=== PATIENT | female | born 1950 | race Caucasian/White ===

== ENCOUNTER 2019-07-16 13:57 | Outpatient (CLI) | payer OTHER, SELFPAY ==
--- NOTE | ~2019-07-16 | CT_ITS ---
EXAMINATION: CT chest abdomen pelvis w con EXAM DATE: 07/16/2019 14:59 INDICATION: Right-sided ovarian cancer. Peritoneal carcinomatosis. TECHNIQUE: Spiral CT of the chest, abdomen and pelvis was performed following intravenous injection o f 100 mL Omnipaque 350. Axial, coronal and sagittal images were reviewed. Coronal maximum intensity pixel images of chest reviewed. The dose-length product (DLP) for this examination was 873.93 mGy-c m. The exposure was tailored according to patient size (auto mA exposure control), and iterative rec onstruction (ASIR) was used as additional dose reduction technique. Comparison is made to prior exami nation from 03/15/2019. FINDINGS: CHEST: There are moderate-sized bilateral pleural effusions with multi segmental bilateral lower lob e compressive atelectasis, have developed compared to prior CT. Tracheobronchial tree is patent. Th ere is no mediastinal, hilar or axillary lymphadenopathy. There is no pneumothorax. There is mild cardiomegaly and a small pericardial effusion. There is mild coronary arterial calcification, arter ial sclerosis. No central pulmonary emboli. ABDOMEN PELVIS: Compared to previous examination, only small amount of ascites is present. There is e xtensive peritoneal carcinomatosis again seen. The liver, spleen, adrenal glands and pancreas are un remarkable. Gallbladder is unremarkable. No biliary obstruction. Portal and splenic veins are cai nt. Kidneys enhance symmetrically. There is no hydronephrosis. Previously seen pelvic cystic mass , uterus have been resected. There is pelvic multicystic region within the hysterectomy bed measuring 3 x 5 cm, likely carcinomatosis. The bladder is unremarkable. There is no retroperitoneal or pelvi c lymphadenopathy. There is moderate scattered arteriosclerotic disease. The appendix is not positively visualized. There is no pericecal inflammatory change to suggest appe ndicitis. The stomach and small bowel are unremarkable. There is expected amount of colonic stool. No free intraperitoneal gas. There are no osteoblastic or osteolytic lesions identified. IMPRESSION: 1. Interval hysterectomy. Extensive peritoneal carcinomatosis. 2. Interval development of moderate bilateral pleural effusions with multisegmental lower lobe atele ctasis. 3. Mild cardiomegaly, small pericardial effusion. Reviewed, dictated and finalized at location A. IMPRESSION: 1. Interval hysterectomy. Extensive peritoneal carcinomatosis. 2. Interval development of moderate bilateral pleural effusions with multisegm ental lower lobe atelectasis. 3. Mild cardiomegaly, small pericardial effusion.
[2019-07-16 14:44] LABS: Estimated Glomerular Filt Rate > 60
== END 2019-07-16 13:58 | disposition home or self-care (01) ==
PROVIDERS: PCP Family Medicine; Referring Provider Obstetrics & Gynecology Gynecologic Oncology
DX: C56.9 Malignant neoplasm of unspecified ovary (principal); Z51.81 Encounter for therapeutic drug level monitoring; Z79.899 Other long term (current) drug therapy; H91.3 Deaf nonspeaking, not elsewhere classified; I69.359 Hemiplegia and hemiparesis following cerebral infarction affecting unspecified side; I69.328 Other speech and language deficits following cerebral infarction; Z90.710 Acquired absence of both cervix and uterus; J90 Pleural effusion, not elsewhere classified; J98.11 Atelectasis; I51.7 Cardiomegaly; I31.3 Pericardial effusion (noninflammatory)
CPT/HCPCS: 36415; 71260; 74177; Q9967

== ENCOUNTER 2019-08-01 14:26 | Inpatient (IN) | payer OTHER, SELFPAY ==
[2019-08-01] VITALS (11 sets, daily range): BP systolic 152–197; BP diastolic 87–122; PULSE 92–125; RESP 18–24; TEMP 36.2–36.6; O2SAT 93–99; BMI 28.2
--- NOTE | ~2019-08-01 | US_ITS ---
EXAMINATION: US thoracentesis DATE: 08/03/2019 14:38 INDICATION: Right pleural effusion TECHNIQUE: The procedure and its risks and benefits were discussed with the patient. Potential risks discussed included bleeding, infection, and pneumothorax. The patient understood the risks and agreed to proceed. The skin was prepped and draped in sterile fashion. 1% lidocaine was used for local anes thesia. Under ultrasound guidance, a 5 Fr catheter with trochar was advanced into the right pleural e ffusion. Fluid was aspirated. The catheter was removed, and a dressing was applied. There were no imm ediate complications. FINDINGS: Ultrasound images demonstrate a moderate-sized right pleural effusion and the catheter within the flu id. IMPRESSION: 1. Successful ultrasound-guided thoracentesis yielding 850 mL of clear yellow fluid. Reviewed, dictated and finalized at location A.
--- NOTE | ~2019-08-01 | CT_ITS ---
EXAMINATION: CT abdomen pelvis wo con DATE: 08/02/2019 19:05 INDICATION: Abdominal pain, nausea and increasing distention TECHNIQUE: Computed tomography (CT) of the abdomen and pelvis was performed without intravenous contr ast. The dose-length product was 1044.06 mGy-cm. Automated exposure control and iterative reconstruct ion technique were employed. COMPARISON: CT dated 07/16/2019 FINDINGS: Unchanged moderate-large bilateral pleural effusions with underlying compressive atelectasi s. Heart size normal. Evaluation of the lung parenchyma limited by motion. Calcified granuloma right lower lobe. Calcified granulomas are present in the liver and spleen. Redemonstrated is peritoneal nodularity ant eriorly with small amount of ascites, consistent with peritoneal carcinomatosis. No evidence for kareem l obstruction. There is bladder wall thickening, although not well distended. There is a persistent s oft tissue mass in the pelvis measuring 5 x 3.4 cm, most likely carcinomatosis. No osteolytic or oste oblastic lesions. Mild-moderate lumbar spondylosis. IMPRESSION: 1. Unchanged moderate-large bilateral pleural effusions with underlying compressive atelectasis. 2: No significant change to extensive peritoneal carcinomatosis. Small amount of ascites. Reviewed, dictated and finalized at location A. IMPRESSION: 1. Unchanged moderate-large bilateral pleural effusions with underlying gavin sive atelectasis. 2: No significant change to extensive peritoneal carcinomatosis. Small amount o f ascites.
--- NOTE | ~2019-08-01 | CT_ITS ---
EXAMINATION: CT brain wo con DATE: 08/04/2019 12:58 INDICATION: Right-sided weakness TECHNIQUE: Computed tomography (CT) of the head was performed without intravenous contrast. The dose- length product was 605.33 mGy-cm. The mA was adjusted according to patient size. Iterative reconstruc tion technique was employed. COMPARISON: None FINDINGS: Generalized atrophy. There are scattered severe periventricular and subcortical white matte r changes, most likely related to small vessel ischemic disease (microangiopathy). No ventriculomegal y or midline shift. Basilar cisterns are patent. There is intracranial atherosclerosis. Paranasal sin uses and mastoids are pneumatized. No depressed skull fractures. IMPRESSION: 1. No acute intracranial abnormality. 2: Chronic age-related findings. Reviewed, dictated and finalized at location A.
--- NOTE | ~2019-08-01 | XR_ITS ---
EXAMINATION: XR chest 1V DATE: 08/03/2019 14:31 INDICATION: Pleural effusions post right thoracentesis. TECHNIQUE: frontal view of the chest was obtained. COMPARISON: Chest CT dated 08/01/2019 FINDINGS: Significant decrease in a now very small right pleural effusion. Moderate-sized left pleural effusion with associated atelectasis in the left lower lung zone. No pulmonary edema or pneumothorax. Calcifi ed nodules in the right lower lung zone and calcified right hilar lymph nodes consistent with old gra nulomatous disease. Heart size is normal. Atherosclerotic aorta. IMPRESSION: 1. Bilateral pleural effusions, moderate on the left and significantly decreased now very small in th e right post right thoracentesis. Reviewed, dictated and finalized at location A. IMPRESSION: 1. Bilateral pleural effusions, moderate on the left and significantly decrease d now very small in the right post right thoracentesis.
--- NOTE | ~2019-08-01 | XR_ITS ---
XR chest 1V portable 08/04/2019 13:01 Indication: Follow-up on right thoracentesis. Dyspnea. Procedure: AP portable chest Comparison: 03/15/2019 Findings: Cardiomegaly. Bilateral pleural effusions, left greater than right. Extensive bilateral air space disease, left greater than right. No pneumothorax identified. No acute osseous abnormality. Impression: 1: Progression of bilateral airspace disease may represent edema or pneumonia. 2: Bilateral pleural effusions, left greater than right. Reviewed, dictated and finalized at location A. Impression: 1: Progression of bilateral airspace disease may represent edema or pneumonia. 2: Bilateral pleural effusions, left greater than right.
--- NOTE | ~2019-08-01 | CT_ITS ---
EXAMINATION: CTA chest PE protocol DATE: 08/01/2019 16:29 CDT INDICATION: Ovarian cancer. Tachycardia. Hypoxia. TECHNIQUE: Computed tomographic angiography (CTA) of the chest was performed with 100 mL Omnipaque-35 0 intravenous contrast. The dose-length product was 453.92 mGy-cm. Maximum intensity projection 3D-re constructions of the aorta and other arteries were constructed by the technologist on a separate work station. Automated exposure control and iterative reconstruction technique were employed. COMPARISON: CT dated 07/16/2019 FINDINGS: Persistent moderate-large bilateral pleural effusions with underlying compressive atelectas is. Heart size normal. Study is technically limited by motion artifact for evaluation of peripheral pulmonary arteries in th e lower lobes. No large central pulmonary embolism. There are calcified mediastinal lymph nodes consi stent with chronic granulomatous disease. No pulmonary nodules or masses. There is nodular thickening of the peritoneum in the upper abdomen partially visualized, consistent w ith peritoneal carcinomatosis. IMPRESSION: 1. No large central pulmonary embolism. Evaluation of the lower lobe peripheral pulmonary arteries li mited by motion artifact. 2: Persistent moderate-large bilateral pleural effusions with underlying compressive atelectasis. 3: Peritoneal carcinomatosis. Reviewed, dictated and finalized at location A. IMPRESSION: 1. No large central pulmonary embolism. Evaluation of the lower lobe peripheral pulmonary arteries limited by motion artifact. 2: Persistent moderate-large bilateral pleural effusions with underlying compre ssive atelectasis. 3: Peritoneal carcinomatosis.
--- NOTE | 2019-08-01 14:37 | ED.SOB ---
HPI - SOB/Dyspnea General Chief Complaint: Shortness of Breath/Dyspnea Stated Complaint: SOB Time Seen by Provider: 08/01/19 14:27 Source: patient and EMS Mode of arrival: EMS Limitations: language barrier History of Present Illness HPI Narrative: Patient is a 69-year-old female with a history of ovarian cancer, peritoneal carcinomatosis diagnosed in March 2019, deafness, who presents for evaluation of shortness of breath. Patient with shortness of breath started yesterday, also reporting central chest pain. She is having some palpitations. Dry cough, no phlegm production or hemoptysis. Patient has not had a fever. Patient is deaf, no ophthalmic pathologist present, difficult to obtain history. Related Data Home Medications Medication Instructions Recorded Confirmed fesoterodine [Toviaz] 8 mg PO DAILY 03/15/19 furosemide 20 mg PO DAILY 03/15/19 levothyroxine 50 mcg PO DAILY 03/15/19 lisinopril 40 mg PO DAILY 03/15/19 metformin 1,000 mg PO BID 03/15/19 metoprolol succinate 25 mg PO DAILY 03/15/19 pioglitazone 45 mg PO DAILY 03/15/19 rosuvastatin 5 mg PO DAILY 03/15/19 aspirin 81 mg PO BID 08/01/19 docusate sodium [DOK] 100 mg PO BID 08/01/19 08/01/19 Allergies Allergy/AdvReac Type Severity Reaction Status Date / Time No Known Allergies Allergy Verified 03/15/19 16:06 Review of Systems Review of Systems: Narrative: CONSTITUTIONAL: Denies fever CARDIOVASCULAR: Reports chest pain RESPIRATORY: Reports dry cough and shortness of breath GASTROINTESTINAL: Denies abdominal pain SKIN: Denies rash MUSCULOSKELETAL: Denies back pain NEUROLOGIC: Denies headache [facility] Past Medical History Medical History (Updated 08/01/19 @ 19:28 by Radhika Garland MD) Deaf No active medical problems Ovarian cancer Surgical History Surgical History (Updated 03/15/19 @ 16:05 by Kim Blake) No pertinent past surgical history Social History Social History Smoking status: Never smoker Gender identity (if verbalized by the patient): Female Exam Narrative: Exam Narrative: GENERAL: Awake, alert, conversant HEAD: Normocephalic, atraumatic. EYES: PERRLA and EOMI. ENT: Nares clear, no rhinorrhea or epistaxis. Mucous membranes moist. NECK: Supple. CHEST: Tachypnea, mild hypoxemia, mild use of accessory muscles, crackles bilaterally HEART: Tachycardic rate, sinus rhythm ABDOMEN:Non distended, non tender EXTREMITIES: Normal range of motion. No edema. SKIN: Warm, dry, no rash. NEURO:No focal deficits. Alert and oriented x3 Course Course Emergency Course: Patient presented to the emergency department for evaluation of shortness of breath. At the time of initial assessment, ABCs are intact and vital signs are stable. Physical exam is notable for a tachycardic, hypertensive, tachypneic patient with borderline hypoxemia on room air. Patient was placed on oxygen via nasal cannula for comfort, chest exam notable for crackles bilaterally. After chart review, it is known to me that I saw this patient for new diagnosis of ovarian tumor, peritoneal carcinomatosis, and patient was transferred in March to [facility] where she underwent debulking surgery. After I requested records from [facility] and spoke with the fine on team at that facility, patient has had some difficulty with follow-up, but finally they had coordinated for her oncology care to be with Dr. Charles with our facility. Today, patient's laboratory results are concerning for acute heart failure with fluid overloaded state causing her tachypnea, tachycardia and hypoxemia. She has a mild leukocytosis, pleural effusions on imaging without evidence of PE. These could be malignant effusions, but there is no mass on imaging. I spoke with Dr. Charles who is going to see the patient in the hospital. Patient was given nitroglycerin as well as Lasix for blood pressure control and fluid overload. She remaine
[2019-08-01] MEDS: SODIUM CHLORIDE 0.9% IV 500 ML 999 ML IV CONT (14:45)
--- NOTE | 2019-08-01 14:49 | ECG_ITS ---
Measurements Intervals [place] Rate: 116 P: 46 CT: 135 QRS: -11 QRSD: 92 T: 32 QT: 319 QTc: 444 Interpretive Statements SINUS TACHYCARDIA CANNOT RULE OUT SEPTAL INFARCT, AGE INDETERMINATE BORDERLINE ST-T WAVE ABNORMALITY- DIFFUSE LEADS BASELINE WANDER- I, II, III, AVR, AVL, AVF, V1, V3 ABNORMAL ECG Electronically Signed On 08-01-2019 16:43:56 CDT by Louis Chirinos D.O.
[2019-08-01 15:39] LABS: Basophils Absolute Auto 0.1 K/mm3 (0.0-0.1); Basophils Percent Auto 0.5 % (0.2-1.2); Eosinophils Absolute Auto 0.1 K/mm3 (0-0.3); Eosinophils Percent Auto 0.5 % (0-4.4); Hematocrit 46.8 % (37.0-47.0); Hemoglobin 14.5 g/dL (12.0-15.0); Immature Granulocyte Absolute 0.25 K/mm3 (0.00-0.031); Immature Granulocyte Percent A 1.9 % (0-0.5); Lymphocytes Absolute Auto 0.49 K/mm3 (0.9-3.2); Lymphocytes Percent Auto 3.7 % (18.3-44.2); Mean Corpuscular Hemoglobin 27.4 pg (26-34); Mean Corpuscular Volume 88.5 fl (80-100); Mean Platelet Volume 9.3 fl (7.4-10.4); Monocytes Absolute Auto 1.1 K/mm3 (0.1-0.6); Monocytes Percent Auto 8.5 % (2.6-8.5); Neutrophils Absolute Auto 11.2 K/mm3 (1.3-6.7); Neutrophils Percent Auto 84.9 % (45.5-73.1); Platelet Count Result 326 k/mm3 (150-375); Red Blood Count 5.29 M/mm3 (4.2-5.4); Red Cell Distribution Width 14.3 % (11.5-14.5); White Blood Count 13.2 K/mm3 (4.5-10.0)
[2019-08-01 15:50] LABS: Lactic Acid Reflex 1.2 mmol/L (0.7-2.1)
[2019-08-01 15:52] LABS: Partial Thromboplastin Time 29.2 SECONDS (22.3-36.8); Prothrombin Time 13.2 Seconds (11.1-14.7)
[2019-08-01 15:53] LABS: Alanine Aminotransferase 13 U/L (4-35); Albumin Level 3.7 g/dL (3.5-5.1); Alkaline Phosphatase 153 U/L (38-126); Aspartate Amino Transferase 26 U/L (14-36); Bilirubin,Total 0.6 mg/dL (0.2-1.3); Blood Urea Nitrogen 20 mg/dL (7-17); Calcium 9.5 mg/dL (8.4-10.2); Carbon Dioxide 30 mmol/L (22-30); Chloride 100 mmol/L (98-107); Estimated CRCL calculation 66 ml/min; Estimated Glomerular Filt Rate > 60; Glucose 155 mg/dL (65-105); Potassium 3.7 mmol/L (3.4-5.0); Sodium 138 mmol/L (137-145)
[2019-08-01 15:55] LABS: D Dimer 3.94 ug/mL (<0.48)
[2019-08-01 16:03] LABS: NT Pro B Type Natriuretic Pept 1820 PG/ML (5-100)
[2019-08-01 16:51] LABS: Alveolar/Arterial O2 Gradient 13.1 mmHg; Base Excess ABG 1.3 mEq/l (+/-2.0); Fractional Inspired Oxygen 21 %; HCO3 ABG 26.7 mEq/l (22.0-26.0); Oxygen Content ABG 17.7 %vol (16.0-22.0); Oxyhemoglobin 94.2 % THb (90.0-100.0); PCO2 ABG 45.3 mmHg (35.0-45.0); PO2 ABG 82.4 mmHg (80.0-100.0); PO2 FiO2 Ratio Arterial Blood 3.92 %; Total Hemoglobin 13.3 g/dL (12.0-18.0); pH ABG 7.389 (7.350-7.450)
[2019-08-01 16:52] LABS: Device NASAL CANNULA; Site Drawn LEFT BRACHIAL
[2019-08-01] MEDS: FUROSEMIDE INJ 40 MG/4 ML VIAL 20 MG IV PUSH (18:00)
[2019-08-01] MEDS: NITROGLYCERIN OINTMENT 1 INCH DOSE TRANSDERM (18:49)
[2019-08-01 20:13] LABS: Glucose Point of Care 166 (65-105)
--- NOTE | 2019-08-01 20:22 | ADMGEN ---
This patient, Pinky Villafana, was admitted to IMU Room 205-01. Patient/family oriented to hospital policies and general routines including ID bracelet, bed and alarms, visiting hours, pain management, procedures, bathroom and other care routines, personal items, smoking policy, room service/diet, and visiting hours. Valuables list has been completed. Information on how to activate the Rapid Response Team has been discussed. Patient/Family are encouraged to report perceived risks to care and to ask questions if they do not understand what they are told or what they should do.
--- NOTE | 2019-08-01 21:32 | PC.NURSE ---
Medications were clarified with nurse from [facility], where patient currently resides.
[2019-08-02] VITALS (19 sets, daily range): BP systolic 153–184; BP diastolic 77–106; PULSE 68–117; RESP 12–24; TEMP 35.6–36.6; O2SAT 92–98
[2019-08-02 01:05] LABS: Troponin I 0.049 ng/mL (0.000-0.034)
[2019-08-02] MEDS: ACETAMINOPHEN 325 MG TABLET 650 MG PO ×2 (01:50→09:21)
[2019-08-02] MEDS: METOPROLOL TARTRATE 25 MG TABLET PO ×3 (01:50→20:48)
[2019-08-02 04:14] LABS: Troponin I 0.049 ng/mL (0.000-0.034)
--- NOTE | 2019-08-02 06:00 | ECHO_ITS ---
Patient Info Name: Pinky Villafana Age: 69 years : 1950 Gender: Female Ht: 63 in Wt: 159 lbs BSA: 1.81 m2 HR: 88 bpm BP: 153 / 77 mmHg Heart Rhythm: Sinus Rhythm Technical Quality: Fair Exam Date: 08/02/2019 9:36 AM Exam Location: [facility] Pulmonary Patient Status: Inpatient Admit Date: 08/01/2019 Staff Ordering Physician: Radhika Garland MD Cafeteria Assistant: David Murcia RDCS Attending Provider: Lito Brandon MD Referring Physician: Dada DAUGHERTY; Exam Type: CA echo doppler color flow Study Info Indications I50.9 - Heart failure, unspecified Complete two-dimensional, color flow and Doppler transthoracic echocardiogram is performed. History/Risk Factors Acute CHF w/ BNP 1820, SOB, chest pain, palpitations, HTN. Summary 1. Left ventricular chamber dimension is normal. 2. Left ventricular systolic function is normal, estimated at 60-65%. 3. There is moderately increased left ventricular wall thickness. 4. The left ventricular diastolic function is grade I diastolic dysfunction. 5. E/e' 14 is mildly elevated. 6. The aortic valve is not well visualized. 7. There is moderate aortic valve sclerosis. 8. There is moderate aortic valve stenosis based on a peak velocity of 313 cm/s, mean gradient of 23 mmHg, and aortic valve area of 1.0 cm2. 9. The mitral valve has mildly thickened leaflets. 10. There is mild mitral valve regurgitation. 11. There is trace tricuspid valve regurgitation. Left Ventricle E/e' 14 is mildly elevated. Left ventricular chamber dimension is normal. Left ventricular systolic function is normal, estimated at 60-65%. There is moderately increased left ventricular wall thickness. The left ventricular diastolic function is grade I diastolic dysfunction. Right Ventricle Right ventricular chamber dimension is normal. Right ventricular systolic function is normal. Left Atria Left atrial chamber dimension is normal. Right Atria Right atrial chamber dimension is normal. Aortic Valve Probably trileaflet aortic valve. There is moderate aortic valve stenosis based on a peak velocity of 313 cm/s, mean gradient of 23 mmHg, and aortic valve area of 1.0 cm2. The aortic valve is not well visualized. There is moderate aortic valve sclerosis. There is no aortic valve regurgitation. Pulmonic Valve There is no pulmonic regurgitation. Mitral Valve The mitral valve has mildly thickened leaflets. There is no mitral valve stenosis. There is mild mitral valve regurgitation. Tricuspid Valve There is trace tricuspid valve regurgitation. RVSP is not calculated due to an inadequate TR jet. Pericardium/Pleural There is no pericardial effusion. Inferior Vena Cava Normal inferior vena cava with >50% collapse upon inspiration consistent with normal right atrial pressure, 5 mmHg. Aorta The aortic root size at the sinus of Valsalva is normal. Left Ventricular Outflow Tract Name Value Normal LVOT 2D LVOT Diameter 1.7 cm LVOT Doppler LVOT Peak Gradient 8 mmHg LVOT Mean Gradient 4 mmHg LVOT VTI
[2019-08-02] MEDS: ACETAMINOPHEN/ASPIRIN/CAFFEINE 250-250-65 MG TABLET 1 TABLET PO ×2 (06:19→13:54)
[2019-08-02] MEDS: ONDANSETRON INJ 4 MG/2 ML VIAL IV PUSH ×4 (06:20→23:55)
[2019-08-02] MEDS: LEVOTHYROXINE SODIUM 50 MCG TABLET PO (06:20)
[2019-08-02 07:21] LABS: Glucose Point of Care 110 (65-105)
--- NOTE | 2019-08-02 08:31 | PM.IMHP ---
H&P: HPI History of Present Illness Chief complaint: Shortness of breath Narrative: Date and time of patient contact: 08/02/2019 at 5:50 a.m. Pinky Villafana is a 69 year old female with a past medical history of profound congenital hearing loss, ovarian cancer with carcinomatosis status post hysterectomy with bilateral oophorectomy and tumor debulking in March who presented to the ER with increasing shortness of breath. The patient reported that she is short of breath at rest but is been much worse when she is up and walking or performing any exertion. Her shortness of breath has increased significantly over the last 24 hours prior to presentation. She has slept in a recliner for many years so she cannot report whether she is having orthopnea. She did have some central chest pressure that was worse when her heart was racing when she would get up in exert herself. She reported that the chest pressure went away when she would rest. While she was at [facility] in [place] she had an echocardiogram and an ejection fraction of 60%. She did have sinus tachycardia at that time and had been started on metoprolol. There was a miscommunication when the patient was discharged to the assisted living facility and she was not continued on metoprolol. She has had a dry cough and denies any fevers or chills. In fact while I was in the patient's room she mention that she was extremely hot no less than 10 times despite her room being cold. Patient reported that she had a headache that was in the right frontal and was a 5/10 in intensity. She had already received Tylenol for her headache without relief. She reports that Excedrin usually works better for her. She did have some nausea while I was at bedside but had not had any vomiting since admission. She denies any confusion but during our discussion patient was adamant that her cancer had been diagnosed in January but the patient had actually been evaluated here with a CT scan March 15 demonstrating the patient's right ovarian mass and peritoneal carcinomatosis with ascites. She had a trace right pleural effusion and small pericardial effusion at that time. Scan of the chest abdomen pelvis 07/16/2019 demonstrated interval hysterectomy with extensive peritoneal carcinomatosis and interval development of moderate bilateral pleural effusions with multiple segmental lower lobe atelectasis, mild cardiomegaly and a small pericardial effusion. The patient has not started chemotherapy as she did not want to travel all the way to [facility] in [place]. Source of information: Information obtained from review of past medical records and report from the patient through an command post superintendent. Review of Systems Review of Systems: Narrative: 12 systems were reviewed with pertinent positives and negatives per HPI. Except as documented in the HPI, all other systems were reviewed and are negative. FOR[facility]LY [facility] Past Medical History Medical History (Updated 08/04/19 @ 13:39 by Kevin Kaur MD) Aortic stenosis Echocardiogram from outside facility March 2019 demonstrated mild aortic stenosis with ejection fraction is 60% Congenital deafness Hyperlipidemia Hypothyroidism Migraine headache Ovarian cancer Overactive bladder Peritoneal carcinomatosis Therapeutic opioid induced constipation Surgical History Surgical History (Updated 08/02/19 @ 08:51 by Hannah Mcleod DO) History of hysterectomy with bilateral oophorectomy March 2019 with tumor debulking, omentectomy, adhesion lysis performed at [facility] in [place] Family History Family History (Updated 08/02/19 @ 08:55 by Hannah Mcleod DO) Mother Cerebrovascular accident Hypertension Son Congenital deafness Oldest son Social History Social History (Updated 08/02/19 @ 08:57 by Hannah Mcleod DO) Social History: Primary care physician: Dr. Diogo Scott Code status: Full code per EMR
[2019-08-02] MEDS: lisinopriL 10 MG TABLET PO (09:19)
[2019-08-02] MEDS: LETROZOLE (*CHEMO) 2.5 MG TABLET PO (09:19)
[2019-08-02] MEDS: ROSUVASTATIN 5 MG TABLET PO (09:19)
[2019-08-02 09:47] LABS: Hematocrit 42.1 % (37.0-47.0); Hemoglobin 13.3 g/dL (12.0-15.0); Mean Corpuscular HGB Conc 31.6 g/dl (32-36); Mean Corpuscular Volume 88.6 fl (80-100); Mean Platelet Volume 9.1 fl (7.4-10.4); Platelet Count Result 295 k/mm3 (150-375); Red Blood Count 4.75 M/mm3 (4.2-5.4); Red Cell Distribution Width 14.1 % (11.5-14.5); White Blood Count 12.6 K/mm3 (4.5-10.0)
[2019-08-02 10:01] LABS: Blood Urea Nitrogen 16 mg/dL (7-17); Calcium 9.1 mg/dL (8.4-10.2); Carbon Dioxide 31 mmol/L (22-30); Chloride 99 mmol/L (98-107); Estimated CRCL calculation 74 ml/min; Estimated Glomerular Filt Rate > 60; Glucose 152 mg/dL (65-105); Sodium 137 mmol/L (137-145)
[2019-08-02 12:21] LABS: Glucose Point of Care 117 (65-105)
--- NOTE | 2019-08-02 15:23 | PC.NURSE ---
This patient, Pinky Villafana, was transferred to [ [id number]] on 08/02/19 at 1523. Personal belongings sent with patient. Belongings list checked and signed with receiving [ ]. Report given to [ONI Young @ [id number] ]. Appropriate documentation sent with patient.
--- NOTE | 2019-08-02 15:44 | PC.NURSE ---
Transfer received from [facility] 08/02/19 at 1530.
--- NOTE | 2019-08-02 16:40 | PM.IMPN ---
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 - Secondary malignant neoplasm of retroperitoneum and peritoneum; C80.1 - Malignant (primary) neoplasm, unspecified Status: Inactive Assessment and Plan: The patient has not yet started on chemotherapy periods she has not followed up since her discharge from the hospital following her hysterectomy and debulking procedures at the end of March. The patient would like to receive chemotherapy locally if possible. Subsequently, Dr. Charles from Oncology was consulted to see if this could be arranged 08/02/19 16:40 Patient is 69-year-old female with profound hearing loss congenitally with history ofovarian cancer with carcinomatosis status post hysterectomy with bilateral oophorectomy and tumor debulking at [facility] in March 2019 patient presented emergency department with a complaint of shortness of address as well as it exertion, further evaluate the CTA of the chest and did not show any pulmonary emboli however patient is a bilateral pleural effusion suggesting patient most likely has a as ablation of CHF etiology is uncertain, patient initial tropes were negative 2nd and 3rd tropes a slightly elevated flat and mild the patient still complains of chest pain and shortness of breath but denies any fever or chills, patient being diuresed cardiac echo is pending, patient be seen by oncologist and relations to ovarian cancer with carcinomatosis (2) Congestive heart failure: Qualifiers: Heart failure type: other Qualified Code(s): I50.9 - Heart failure, unspecified Code(s): I50.9 - Heart failure, unspecified Status: Acute Assessment and Plan: Bilateral pleural effusions likely multifactorial due to a combination of malignancy and CHF. Patient received 20 mg of Lasix IV in the ER. Will continue patient on Lasix 40 mg IV daily. Repeat electrolyte panel has been ordered. (3) Elevated troponin: Code(s): R79.89 - Other specified abnormal findings of blood chemistry Status: Acute Assessment and Plan: Likely due to cardiac strain from patient's cancer and CHF exacerbation. The patient's troponin profile is relatively flat. Not indicative of acute infarction. Subjective Date/time seen: 08/02/19 16:40 Patient is 69-year-old female with profound hearing loss congenitally with history ofovarian cancer with carcinomatosis status post hysterectomy with bilateral oophorectomy and tumor debulking at [facility] in March 2019 patient presented emergency department with a complaint of shortness of address as well as it exertion, further evaluate the CTA of the chest and did not show any pulmonary emboli however patient is a bilateral pleural effusion suggesting patient most likely has a as ablation of CHF etiology is uncertain, patient initial tropes were negative 2nd and 3rd tropes a slightly elevated flat and mild the patient still complains of chest pain and shortness of breath but denies any fever or chills, patient being diuresed cardiac echo is pending, patient be seen by oncologist and relations to ovarian cancer with carcinomatosis Review of Systems Review of Systems: All systems reviewed & are unremarkable except as noted in HPI and below Exam Const: General: no acute distress and uncomfortable HENMT: General nose exam: Normal nares present Mouth: Yes moist mucous membranes Eyes: General: appearance normal, both eyes and all related structures Sclera: sclerae normal Neck: Neck: supple Resp: Other: Bilateral fair air entry with rales Cardio: Rate: regular rate Rhythm: regular rhythm GI: Auscultation: normal bowel sounds Skin: General skin exam: normal color Neuro: Other: Patient is hard of hearing Extrem: General: normal to inspection Psych: Affect: Anxious affect present Objective Data Vital Signs Vital Signs: Vital Signs - 24 hr 08/01/19 1
--- NOTE | 2019-08-02 17:58 | WPDONCCN ---
Assessment and Plan Assessment and plan (1) Ovarian cancer: Code(s): C56.9 - Malignant neoplasm of unspecified ovary Status: Acute Assessment and Plan: 1. Unable to discuss in detail about her treatment options due to nausea / vomiting at the time of my consultation 2. IF by her prior wishes, she does not want chemo, then I would need to perform mutational studies on her blood and tissue to determine if she would benefit from non-chemo meds 3. further discussion on going 4. Her cancer has recurred after the debulking surgery and therefore is not curable 5. will order CA 125 (2) Peritoneal carcinomatosis: Code(s): C78.6 - Secondary malignant neoplasm of retroperitoneum and peritoneum; C80.1 - Malignant (primary) neoplasm, unspecified Status: Acute Assessment and Plan: due to her increasing abdominal girth and nausea, I will order CT of abdomen and pelvis. I will also add Reglan and routine Zofran May need paracentesis if she has signficant ascites HPI Data of Consult Date/Time: 08/02/19 17:58 Requesting Physician: Lito Brandon MD Primary Care Provider: Diogo Scott, MCiera Consult Narrative Narrative: Pinky Villafana is a 69 year old female with recent diagnosis of metastatic ovarian cancer with peritoneal disease. She underwent expl lab with debulking of tumor and omentectomy, NEISHA - BSO at [facility] in [facility] in Apr. She had difficulty in following up after the surgery with the [facility] MD. She saw Dr. Mejia 2 times Postop and pt declined chemotherapy. She has logistic problems with transportation and can't get over to [place] easily. She lives in [place] She presents here last night with increasing abdominal distention, SOB and chest tightness. DX of CHF was made and is undergoing treatment. When I entered the room, she is c.o nausea and dyspnea. She feels her abdomen has become tighter. CTA of chest last night shows b/l pleural effusions and peritoneal deposits + ascites. Review of Systems Review of Systems: All systems reviewed & are unremarkable except as noted in HPI and below Constitutional: Constitutional: Reports anorexia, Reports fatigue, Denies fever(s), Reports malaise, Denies night sweats, Reports snoring, Denies weakness and Denies weight loss Eyes: Eyes: Denies blurry vision ENT: Denies dysphagia, Reports dry mouth, Reports hearing loss, Denies epistaxis, Denies mouth lesions, Denies mouth pain, Denies odynophagia, Denies disequilibrium and Denies sore throat Cardiovascular: Cardiovascular: Reports chest pain, Denies leg edema and Denies dyspnea Respiratory: Respiratory: Denies cough, Denies dyspnea and Reports snoring Gastrointestinal: Gastrointestinal: Reports abdominal pain, Reports constipation, Denies dysphagia, Denies diarrhea, Reports nausea, Denies odynophagia and Reports vomiting Genitourinary: Genitourinary: Denies hematuria and Denies dysuria Musculoskeletal: Musculoskeletal: Denies myalgias, Denies arthralgias and Reports muscle weakness Integumentary/Breasts: Skin/Breast: Denies rash and Denies unusual bruising Neurologic: Denies confusion, Denies disequilibrium and Reports weakness Psychiatric: Psychiatric: Reports confusion and Denies depression Endocrine: Endocrine: Reports fatigue Hematologic/Lymphatic: Hematologic/Lymphatic: Denies easy bleeding, Denies easy bruising and Denies lymphadenopathy [facility] Past Medical History Medical History (Updated 08/02/19 @ 18:08 by Govind Charles DO) Aortic stenosis Echocardiogram from outside facility March 2019 demonstrated mild aortic stenosis with ejection fraction is 60% Congenital deafness Hyperlipidemia Hypothyroidism Migraine headache Ovarian cancer Overactive bladder Peritoneal carcinomatosis Therapeutic opioid induced constipation Surgical History Surgical History (Updated 08/02/19 @ 08:51 by Hannah Mcleod DO) History of hysterectomy with bilateral o
[2019-08-02] MEDS: METOCLOPRAMIDE HCL INJ 10 MG/2 ML VIAL IV PUSH ×2 (18:43→23:55)
[2019-08-02] MEDS: FAMOTIDINE 20 MG/2 ML VIAL IV PUSH (20:49)
[2019-08-02 22:18] LABS: Glucose Point of Care 150 (65-105)
[2019-08-03] VITALS (13 sets, daily range): BP systolic 144–183; BP diastolic 75–98; PULSE 83–119; RESP 16–24; TEMP 35.5–36.3; O2SAT 87–98
[2019-08-03] MEDS: LEVOTHYROXINE SODIUM 50 MCG TABLET PO (06:20)
[2019-08-03] MEDS: METOCLOPRAMIDE HCL INJ 10 MG/2 ML VIAL IV PUSH ×3 (06:20→17:51)
[2019-08-03] MEDS: ONDANSETRON INJ 4 MG/2 ML VIAL IV PUSH ×3 (06:20→17:52)
[2019-08-03] MEDS: ACETAMINOPHEN 325 MG TABLET 650 MG PO (06:49)
[2019-08-03 09:14] LABS: Basophils Absolute Auto 0.1 K/mm3 (0.0-0.1); Basophils Percent Auto 0.4 % (0.2-1.2); Eosinophils Percent Auto 0.1 % (0-4.4); Hemoglobin 13.9 g/dL (12.0-15.0); Immature Granulocyte Absolute 0.21 K/mm3 (0.00-0.031); Immature Granulocyte Percent A 1.3 % (0-0.5); Lymphocytes Absolute Auto 0.37 K/mm3 (0.9-3.2); Lymphocytes Percent Auto 2.3 % (18.3-44.2); Mean Corpuscular HGB Conc 31.6 g/dl (32-36); Mean Corpuscular Hemoglobin 27.6 pg (26-34); Mean Corpuscular Volume 87.5 fl (80-100); Mean Platelet Volume 9.4 fl (7.4-10.4); Monocytes Absolute Auto 1.4 K/mm3 (0.1-0.6); Monocytes Percent Auto 8.7 % (2.6-8.5); Neutrophils Absolute Auto 13.8 K/mm3 (1.3-6.7); Neutrophils Percent Auto 87.2 % (45.5-73.1); Platelet Count Result 356 k/mm3 (150-375); Red Blood Count 5.03 M/mm3 (4.2-5.4); Red Cell Distribution Width 14.1 % (11.5-14.5); White Blood Count 15.8 K/mm3 (4.5-10.0)
[2019-08-03] MEDS: ROSUVASTATIN 5 MG TABLET PO (09:16)
[2019-08-03] MEDS: METOPROLOL TARTRATE 25 MG TABLET PO (09:16)
[2019-08-03] MEDS: FUROSEMIDE INJ 40 MG/4 ML VIAL IV PUSH (09:16)
[2019-08-03] MEDS: FAMOTIDINE 20 MG/2 ML VIAL IV PUSH (09:16)
--- NOTE | 2019-08-03 09:16 | PCPTNOTE ---
PT AND OT attempted several times to persuade patient to get oob to a chair....refused multiple times....requires writing to communicate....she has a lift chair at and will not attempt (NEVER!!!) WITHOUT a lift chair, also refused everett plus...will speak with clinician and try again tomorrow if possible
--- NOTE | 2019-08-03 09:16 | PCOTNOTE ---
OT and PT communicated with patient via pen and paper due to patient hearing impairment. Patient educated on purpose of OT services. Patient states she uses chair lift at home and refuses to get out of bed without it. OT and PT offered several alternative methods (i.e TONY plus, squat pivot), but patient continued to refuse out of bed activity. Will communicate with physician to determine next steps.
[2019-08-03] MEDS: lisinopriL 10 MG TABLET PO (09:17)
[2019-08-03 09:26] LABS: Alanine Aminotransferase 9 U/L (4-35); Albumin Level 3.6 g/dL (3.5-5.1); Alkaline Phosphatase 138 U/L (38-126); Aspartate Amino Transferase 21 U/L (14-36); Bilirubin,Total 0.7 mg/dL (0.2-1.3); Blood Urea Nitrogen 15 mg/dL (7-17); Calcium 9.5 mg/dL (8.4-10.2); Carbon Dioxide 23 mmol/L (22-30); Chloride 99 mmol/L (98-107); Estimated CRCL calculation 75 ml/min; Estimated Glomerular Filt Rate > 60; Glucose 152 mg/dL (65-105); Potassium 3.9 mmol/L (3.4-5.0); Sodium 136 mmol/L (137-145)
[2019-08-03 09:45] LABS: Glucose Point of Care 152 (65-105)
--- NOTE | 2019-08-03 10:09 | ECG_ITS ---
Measurements Intervals [place] Rate: 84 P: 36 AR: 144 QRS: -6 QRSD: 90 T: 54 QT: 357 QTc: 423 Interpretive Statements SINUS RHYTHM CANNOT RULE OUT SEPTAL INFARCT, AGE INDETERMINATE BORDERLINE ST ABNORMALITY- HIGH LATERAL LEADS BASELINE ARTIFACT- I, II, III, AVR, AVL, AVF, V1, V3-V6 ABNORMAL ECG Electronically Signed On 08-03-2019 15:16:56 CDT by Louis Chirinos D.O.
--- NOTE | 2019-08-03 12:15 | PM.CNPUL ---
Assessment and Plan Assessment and plan (1) Congestive heart failure: Qualifiers: Heart failure type: other Qualified Code(s): I50.9 - Heart failure, unspecified Code(s): I50.9 - Heart failure, unspecified Status: Acute (2) Pleural effusion: Code(s): J90 - Pleural effusion, not elsewhere classified Status: Acute Assessment and Plan: Based on clinical and radiographic presentation this appears more consistent with CHF but cannot rule out malignancy. Infection/pnuemonia is less likely. - U/S guided large volume thoracentesis of right side and send fluid for cytology, albumin, protein, ph, glucose, trigycerides - continue lasix 40 mg IV daily - BP and HR control is crucial History of Present Illness History of Present Illness Consult date: 08/03/19 Reason for consult: dyspnea Chief complaint: Acute chf, hypoxemia Narrative: 69 y/o female with h/o of advanced ovarian CA and carcinomatosis, dysphasia admitted with dyspnea, tachycardia, HTN, CTscan showing moderate to large bilateral pleural effusions with compressive atelectesis. She was complaining of abdominal pain and nausea when I saw her but I'm not able to get a full history given her dysphasia so most history is from the chart. She has BNP of 1800 on admission with normal Cr. Recent Echo showed normal EF, some diastolic dysfunction and moderate aortic stenosis. Review of Systems Review of Systems: All systems reviewed & are unremarkable except as noted in HPI and below PMFSH Past Medical History Medical History (Updated 08/02/19 @ 18:08 by Govind Charles DO) Aortic stenosis Echocardiogram from outside facility March 2019 demonstrated mild aortic stenosis with ejection fraction is 60% Congenital deafness Hyperlipidemia Hypothyroidism Migraine headache Ovarian cancer Overactive bladder Peritoneal carcinomatosis Therapeutic opioid induced constipation Surgical History Surgical History (Updated 08/02/19 @ 08:51 by Hannah Mcleod DO) History of hysterectomy with bilateral oophorectomy March 2019 with tumor debulking, omentectomy, adhesion lysis performed at [facility] in [place] Family History Family History (Updated 08/02/19 @ 08:55 by Hannah Mcleod DO) Mother Cerebrovascular accident Hypertension Son Congenital deafness Oldest son Social History Social History (Updated 08/02/19 @ 08:57 by Hannah Mcleod DO) Social History: Primary care physician: Dr. Diogo Scott Code status: Full code per EMR Smoking status: Never smoker Alcohol intake: never Substance use: never Living arrangements: assisted living Additional living arrangements comments: She has lived at [facility] for the last 3 years. She has 2 adult sons the oldest of which is also deaf. Her younger son lives in [place]. Gender identity (if verbalized by the patient): Female Spiritual care concerns: No Meds Home Medications and Allergies Home Medications Medication Instructions Recorded Confirmed Type fesoterodine [Toviaz] 8 mg PO DAILY 03/15/19 08/01/19 History levothyroxine 50 mcg PO DAILY 03/15/19 08/01/19 History rosuvastatin 5 mg PO DAILY 03/15/19 08/01/19 History aspirin 81 mg PO BID 08/01/19 08/01/19 History fiyteio-zrgnhhnfjrmpu-wjujmusf 1 tablet PO Q6H PRN 08/01/19 08/01/19 History [Excedrin Extra Strength] ibuprofen 600 mg PO Q6H PRN 08/01/19 08/01/19 History letrozole 2.5 mg PO DAILY 08/01/19 08/01/19 History lisinopril 10 mg PO DAILY 08/01/19 08/01/19 History melatonin 10 mg PO HS PRN 08/01/19 08/01/19 History ondansetron HCl 4 mg PO Q6H PRN 08/01/19 08/01/19 History oxycodone 5 mg PO Q4H PRN 08/01/19 08/01/19 History polyethylene glycol 3350 [ClearLax] 17 g PO DAILY 08/01/19 08/01/19 History sennosides-docusate sodium 1 tab-cap PO BID 08/01/19 08/01/19 History [Senna-S] Allergies Allergy/AdvReac Type Severity Reaction Status Date /
[2019-08-03] MEDS: LACTULOSE 20 GM/30 ML UDC PO (13:14)
[2019-08-03] MEDS: PANTOPRAZOLE SODIUM IV 40 MG VIAL IV PUSH (13:15)
--- NOTE | 2019-08-03 14:11 | PM.IMPN ---
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 - Secondary malignant neoplasm of retroperitoneum and peritoneum; C80.1 - Malignant (primary) neoplasm, unspecified Status: Inactive Assessment and Plan: 08/03/19 14:11 The patient has not yet started on chemotherapy periods she has not followed up since her discharge from the hospital following her hysterectomy and debulking procedures at the end of March. The patient would like to receive chemotherapy locally if possible. Subsequently, Dr. Charles from Oncology was consulted to see if this could be arranged Patient is 69-year-old female with profound hearing loss congenitally with history ofovarian cancer with carcinomatosis status post hysterectomy with bilateral oophorectomy and tumor debulking at [facility] in March 2019 patient presented emergency department with a complaint of shortness of address as well as it exertion, further evaluate the CTA of the chest and did not show any pulmonary emboli however patient is a bilateral pleural effusion suggesting patient most likely has a as ablation of CHF etiology is uncertain, patient initial tropes were negative 2nd and 3rd tropes a slightly elevated flat and mild the patient still complains of chest pain and shortness of breath but denies any fever or chills, patient being diuresed cardiac echo showed preserved LV function with the EF of 55%, patient does have a moderate aortic stenosis, patient still complains of chest pressure and shortness of breath discuss presentation a brim cutter and agree with thoracentesis as patient has a significant large pleural effusion, and it is not improving with diureses, will follow-up on the procedure and further recommendation to follow, patient be seen by oncologist and relations to ovarian cancer with carcinomatosis (2) Congestive heart failure: Qualifiers: Heart failure type: other Qualified Code(s): I50.9 - Heart failure, unspecified Code(s): I50.9 - Heart failure, unspecified Status: Acute Assessment and Plan: Bilateral pleural effusions likely multifactorial due to a combination of malignancy and CHF. Patient received 20 mg of Lasix IV in the ER. Will continue patient on Lasix 40 mg IV daily. Repeat electrolyte panel has been ordered. Plan is above (3) Elevated troponin: Code(s): R79.89 - Other specified abnormal findings of blood chemistry Status: Acute Assessment and Plan: Likely due to cardiac strain from patient's cancer and CHF exacerbation. The patient's troponin profile is relatively flat. Not indicative of acute infarction. Subjective Date/time seen: 08/03/19 14:11 The patient has not yet started on chemotherapy periods she has not followed up since her discharge from the hospital following her hysterectomy and debulking procedures at the end of March. The patient would like to receive chemotherapy locally if possible. Subsequently, Dr. Charles from Oncology was consulted to see if this could be arranged Patient is 69-year-old female with profound hearing loss congenitally with history ofovarian cancer with carcinomatosis status post hysterectomy with bilateral oophorectomy and tumor debulking at [facility] in March 2019 patient presented emergency department with a complaint of shortness of address as well as it exertion, further evaluate the CTA of the chest and did not show any pulmonary emboli however patient is a bilateral pleural effusion suggesting patient most likely has a as ablation of CHF etiology is uncertain, patient initial tropes were negative 2nd and 3rd tropes a slightly elevated flat and mild the patient still complains of chest pain and shortness of breath but denies any fever or chills, patient being diuresed cardiac echo showed preserved LV function with the EF of 55%, patient does have a moderate aortic stenosis, patient still complains of
[2019-08-03 14:44] LABS: pH Pleural Fluid 7.445 (7.210-7.500)
[2019-08-03 15:32] LABS: Appearance Pleural Fluid Hazy (Clear); Color Pleural Fluid Yellow (Colorless); Nucleated Cell Pleural Fluid 1410 /uL (0-1000); Pleural fluid source Pleural fluid
[2019-08-03 15:33] LABS: Lymphocytes Pleural Fluid 31 %; Macrophages Pleural Fluid 1 %; Mesothelial Cells Pleural Flui 3 %; Monocytes Pleural Fluid 7 %; Neutrophils Pleural Fluid 58 % (0-25); RBC Pleural Fluid 1563 /uL (0-0)
--- NOTE | 2019-08-03 17:49 | PC.NURSE ---
1230 pt off the floor for ultrasound.
[2019-08-03] MEDS: METOPROLOL TARTRATE 50 MG TAB PO (21:09)
[2019-08-03 21:16] LABS: Glucose Point of Care 185 (65-105)
[2019-08-04] VITALS (12 sets, daily range): BP systolic 155–160; BP diastolic 75–86; PULSE 78–103; RESP 16–22; TEMP 35.5–36.5; O2SAT 91–94
[2019-08-04] MEDS: ONDANSETRON INJ 4 MG/2 ML VIAL IV PUSH ×3 (00:45→11:16)
[2019-08-04] MEDS: METOCLOPRAMIDE HCL INJ 10 MG/2 ML VIAL IV PUSH ×3 (00:45→11:16)
[2019-08-04 05:20] LABS: Basophils Absolute Auto 0.1 K/mm3 (0.0-0.1); Basophils Percent Auto 0.4 % (0.2-1.2); Eosinophils Percent Auto 0.1 % (0-4.4); Hematocrit 43.7 % (37.0-47.0); Hemoglobin 14.1 g/dL (12.0-15.0); Immature Granulocyte Absolute 0.17 K/mm3 (0.00-0.031); Immature Granulocyte Percent A 1.3 % (0-0.5); Lymphocytes Absolute Auto 0.35 K/mm3 (0.9-3.2); Lymphocytes Percent Auto 2.6 % (18.3-44.2); Mean Corpuscular HGB Conc 32.3 g/dl (32-36); Mean Corpuscular Hemoglobin 28.1 pg (26-34); Mean Corpuscular Volume 87.2 fl (80-100); Mean Platelet Volume 9.4 fl (7.4-10.4); Monocytes Absolute Auto 1.2 K/mm3 (0.1-0.6); Monocytes Percent Auto 9.1 % (2.6-8.5); Neutrophils Absolute Auto 11.5 K/mm3 (1.3-6.7); Neutrophils Percent Auto 86.5 % (45.5-73.1); Platelet Count Result 294 k/mm3 (150-375); Red Blood Count 5.01 M/mm3 (4.2-5.4); White Blood Count 13.4 K/mm3 (4.5-10.0)
[2019-08-04 05:33] LABS: Alanine Aminotransferase 10 U/L (4-35); Albumin Level 3.3 g/dL (3.5-5.1); Alkaline Phosphatase 138 U/L (38-126); Aspartate Amino Transferase 25 U/L (14-36); Bilirubin,Total 0.7 mg/dL (0.2-1.3); Blood Urea Nitrogen 16 mg/dL (7-17); Carbon Dioxide 29 mmol/L (22-30); Chloride 99 mmol/L (98-107); Estimated CRCL calculation 86 ml/min; Estimated Glomerular Filt Rate > 60; Glucose 184 mg/dL (65-105); Sodium 133 mmol/L (137-145)
[2019-08-04] MEDS: LEVOTHYROXINE SODIUM 50 MCG TABLET PO (06:30)
[2019-08-04] MEDS: lisinopriL 10 MG TABLET PO (09:47)
[2019-08-04] MEDS: METOPROLOL TARTRATE 50 MG TAB PO (09:47)
[2019-08-04] MEDS: ROSUVASTATIN 5 MG TABLET PO (09:47)
[2019-08-04] MEDS: FUROSEMIDE INJ 40 MG/4 ML VIAL IV PUSH (09:50)
[2019-08-04] MEDS: PANTOPRAZOLE SODIUM IV 40 MG VIAL IV PUSH (09:50)
[2019-08-04 11:47] LABS: Glucose Point of Care 215 (65-105)
[2019-08-04] MEDS: INSULIN ASPART (*BKC) 100 UNITS/ML SUB-Q (12:04)
--- NOTE | 2019-08-04 12:54 | PCOTNOTE ---
Pt out for CT and X-ray. Will attempt again tomorrow.
--- NOTE | 2019-08-04 13:33 | PM.PNPUL ---
Progress Note: A&P Assessment and Plan (1) Congestive heart failure: Qualifiers: Heart failure type: diastolic Heart failure chronicity: acute Qualified Code(s): I50.31 - Acute diastolic (congestive) heart failure Code(s): I50.9 - Heart failure, unspecified Status: Acute Assessment and Plan: Gross description of plueral fluid consistent with transudate and CHF - decrease lasix to 20 mg IV daily today - increase metoprolol to 75 mg PO bid - cytology pending on right pleural fluid. - Left thoracentesis is risk for pneumothorax at this point and would monitor with CXR to see if decreasing Subjective Date/time seen: 08/04/19 13:33 Interval history: Seems to be feeling better, BP and HR improving, has had bowel movement. CXR shows improved aeration on the right and still a moderate effusion on the left with cardiomegaly Review of Systems Review of Systems: All systems reviewed & are unremarkable except as noted in HPI and below Exam Const: General: in distress Other: complaining of abdominal pain and nausea HENMT: Mouth: Yes moist mucous membranes Eyes: General: appearance normal, both eyes and all related structures Neck: Neck: supple and no JVD Resp: Auscultation: diminished lung sounds Other: with dullness up to mid lung glover R> L Cardio: Rate: regular rate and tachycardic Heart sounds: Murmur heart sound present GI: GI Palp: Yes Soft to palpation Auscultation: abnormal bowel sounds Other: diffuse tenderness Skin: General skin exam: normal color Neuro: Speech: No normal speech (chronic dysphasia ) Extrem: General: normal to inspection, no edema and no pedal edema Objective Data Vital Signs Vital Signs: Vital Signs - 24 hr 08/03/19 13:50 08/03/19 14:19 08/03/19 14:45 Temperature 35.9 C L Pulse Rate 114 H 114 H 83 Respiratory Rate 24 H 24 H 16 Blood Pressure 172/98 H 144/87 H 163/87 H Pulse Oximetry 88 L 87 L 98 08/03/19 14:49 08/03/19 16:00 08/03/19 20:00 Temperature Pulse Rate 90 105 H Respiratory Rate Blood Pressure Pulse Oximetry 92 08/03/19 21:09 08/03/19 22:00 08/04/19 00:00 Temperature 35.5 C L Pulse Rate 110 H 110 H 82 Respiratory Rate 22 H Blood Pressure 183/79 H Pulse Oximetry 94 08/04/19 04:00 08/04/19 06:00 08/04/19 08:00 Temperature 35.5 C L Pulse Rate 103 H 97 103 H Respiratory Rate 22 H Blood Pressure 155/82 H Pulse Oximetry 93 08/04/19 09:47 08/04/19 12:00 Temperature Pulse Rate 100 79 Respiratory Rate Blood Pressure Pulse Oximetry Intake/Output Intake/Output: Intake & Output 08/01/19 08/02/19 08/03/19 08/04/19 23:59 23:59 23:59 23:59 Intake Total 500 300 750 120 Output Total 200 850 Balance 500 100 -100 120 Meds/Results Medications: Active Medications Generic Name Dose Route Start Last Admin Trade Name Freq PRN Reason Stop Dose Admin Acetaminophen 650 mg 08/01/19 18:04 08/03/19 06:49 Tylenol Tablet PO 650 mg Q4H PRN Administration Mild Pain (1-3) or Fever Acetaminophen/Aspirin/Caffeine 1 tablet 08/02/19 05:58 08/02/19 13:54 Pain Reliever Plus Tablet PO 1 tablet Q6H PRN Administration Migraine Headache Dextrose 12.5 gm 08/04/19 10:57 Dextrose 50% Syringe IV PUSH PRN PRN Hypoglycemia Protocol Glucagon 1 mg 08/04/19 10:57 Glucagon For Inj IM PRN PRN Hypoglycemia Protocol Glucose 15 gm 08/04/19 10:57 Glutose 15 PO PRN PRN Hypoglycemia Protocol Dextrose 1,000 mls @ 100 mls/hr 08/04/19 10:57 Dextrose 5% 1,000 Ml IVPB PRN PRN Hypoglycemia Protocol Insulin Aspart 2 - 5 units 08/04/19 12:00 08/04/19 12:04 Novolog SUB-Q 2 units TIDWM YOHANA Administration Protocol Levothyroxine Sodium 50 mcg 08/02/19 06:30 08/04/19 06:30 Synthroid PO 50 mcg DAILY@0630 YOHANA Administration Lisinopril 10 mg 08/02/19 09:00 08/04/19
--- NOTE | 2019-08-04 15:25 | PCOTNOTE ---
Patient seen in room with virtual home health travel ot present. Patient educated on purpose of therapy services and risks of decreased mobility. Patient refused out of bed or edge of bed activity. Patient stated she would not feel comfortable getting out of bed without lift chair even after being educated on safe patient handling equipment provided at hospital.
--- NOTE | 2019-08-04 15:37 | PM.IMPN ---
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 - Secondary malignant neoplasm of retroperitoneum and peritoneum; C80.1 - Malignant (primary) neoplasm, unspecified Status: Inactive Assessment and Plan: The patient has not yet started on chemotherapy periods she has not followed up since her discharge from the hospital following her hysterectomy and debulking procedures at the end of March. The patient would like to receive chemotherapy locally if possible. Subsequently, Dr. Charles from Oncology was consulted to see if this could be arranged 08/04/19 15:37 Patient is 69-year-old female with profound hearing loss congenitally with history ofovarian cancer with carcinomatosis status post hysterectomy with bilateral oophorectomy and tumor debulking at [facility] in March 2019 patient presented emergency department with a complaint of shortness of address as well as it exertion, further evaluate the CTA of the chest and did not show any pulmonary emboli however patient is a bilateral pleural effusion suggesting patient most likely has a as ablation of CHF etiology is uncertain, patient initial tropes were negative 2nd and 3rd tropes a slightly elevated flat and mild the patient still complains of chest pain and shortness of breath but denies any fever or chills, patient being diuresed cardiac echo showed preserved LV function with the EF of 55%, patient does have a moderate aortic stenosis, patient still complains of chest pressure and shortness of breath discuss presentation a instrument processing tech and agree with thoracentesis as patient has a significant large pleural effusion, and it is not improving with diureses, patient had the thoracentesis on 08/02 and 850 cc of clear liquid was removed most likely transudate, today spoke with the patient with the insulator technician is feeling much better compared to when she arrived, patient seen by pulmonology increase metoprolol to 75 mg b.i.d. and decreased Lasix to 20 mg q.day IV patient had a BM today, and able to tolerate diet, if clinically stable will discharge the patient home tomorrow, patient is seen by oncologist stated her cancer has recurred after the debulking surgery and therefore is not curable patient be seen by oncologist and relations to ovarian cancer with carcinomatosis (2) Congestive heart failure: Qualifiers: Heart failure chronicity: acute Heart failure type: diastolic Qualified Code(s): I50.31 - Acute diastolic (congestive) heart failure Code(s): I50.9 - Heart failure, unspecified Status: Acute Assessment and Plan: Bilateral pleural effusions likely multifactorial due to a combination of malignancy and CHF. Patient received 20 mg of Lasix IV in the ER. Will continue patient on Lasix 40 mg IV daily, today seen by instrument processing tech reduce IV Lasix to 20 q.day, mg and increased metoprolol to 75 mg b.i.d. Repeat electrolyte panel has been ordered. Plan is above (3) Elevated troponin: Code(s): R79.89 - Other specified abnormal findings of blood chemistry Status: Acute Assessment and Plan: Likely due to cardiac strain from patient's cancer and CHF exacerbation. The patient's troponin profile is relatively flat. Not indicative of acute infarction. Subjective Date/time seen: 08/04/19 15:37 Patient is 69-year-old female with profound hearing loss congenitally with history ofovarian cancer with carcinomatosis status post hysterectomy with bilateral oophorectomy and tumor debulking at [facility] in March 2019 patient presented emergency department with a complaint of shortness of address as well as it exertion, further evaluate the CTA of the chest and did not show any pulmonary emboli however patient is a bilateral pleural effusion suggesting patient most likely has a as ablation of CHF etiology is uncertain, patient initial tropes were negative 2nd and 3rd tropes a slightly elevate
--- NOTE | 2019-08-04 16:08 | PCPTNOTE ---
PATIENT IS DEAF...YESTERDAY COMMUNICATION WAS NOT OPTIMAL, BUT TODAY USED THE VIDEO HOTHOUSE WORKER WITH SIGN LANGUAGE...PATIENT UNDERSTOOD EVERYTHING... SHE DID YESTERDAY....SHE REFUSED TO PARTICIPATE, MULTIPLE REFUSALS,...SHE WILL NOT ATTEMPT TO GET OUT OF BED WITHOUT HER LIFT CHAIR FROM 'HOME', OR THE WALKER THAT SHE USES AT HOME..EXPLAINED TO PATIENT THAT WE HAD ALTERNATIVE AND SAFE METHODS TO TRANSFER AND AMBULATE, BUT SHE REFUSED, SAYING SEVERAL TIMES THAT SHE WAS UNCOMFORTABLE WITHOUT HER WON EQUIPMENT...SPOKE WITH RASHAD, AND WITH ...WILL D/C THIS PATIENT WITH WILL RENEW THERAPY IS SITUATION CHANGES IN A POSITIVE WAY
[2019-08-04 16:20] LABS: Glucose Point of Care 151 (65-105)
[2019-08-04] MEDS: METOPROLOL TARTRATE 25 MG TABLET 75 MG PO (20:34)
[2019-08-04 21:26] LABS: Glucose Point of Care 208 (65-105)
[2019-08-05] VITALS (10 sets, daily range): BP systolic 150–153; BP diastolic 72–84; PULSE 63–93; RESP 16–18; TEMP 36.4–36.7; O2SAT 94–95
[2019-08-05] MEDS: ONDANSETRON INJ 4 MG/2 ML VIAL IV PUSH (02:18)
[2019-08-05 06:07] LABS: Basophils Absolute Auto 0.1 K/mm3 (0.0-0.1); Basophils Percent Auto 0.4 % (0.2-1.2); Eosinophils Absolute Auto 0.1 K/mm3 (0-0.3); Eosinophils Percent Auto 0.6 % (0-4.4); Hematocrit 45.1 % (37.0-47.0); Hemoglobin 14.3 g/dL (12.0-15.0); Immature Granulocyte Absolute 0.18 K/mm3 (0.00-0.031); Immature Granulocyte Percent A 1.4 % (0-0.5); Lymphocytes Absolute Auto 0.43 K/mm3 (0.9-3.2); Lymphocytes Percent Auto 3.4 % (18.3-44.2); Mean Corpuscular HGB Conc 31.7 g/dl (32-36); Mean Corpuscular Hemoglobin 27.5 pg (26-34); Mean Corpuscular Volume 86.7 fl (80-100); Mean Platelet Volume 9.2 fl (7.4-10.4); Monocytes Absolute Auto 1.1 K/mm3 (0.1-0.6); Monocytes Percent Auto 8.8 % (2.6-8.5); Neutrophils Absolute Auto 10.7 K/mm3 (1.3-6.7); Neutrophils Percent Auto 85.4 % (45.5-73.1); Platelet Count Result 322 k/mm3 (150-375); Red Cell Distribution Width 13.9 % (11.5-14.5); White Blood Count 12.6 K/mm3 (4.5-10.0)
[2019-08-05 06:27] LABS: Alanine Aminotransferase 10 U/L (4-35); Albumin Level 3.4 g/dL (3.5-5.1); Alkaline Phosphatase 136 U/L (38-126); Aspartate Amino Transferase 24 U/L (14-36); Bilirubin,Total 0.6 mg/dL (0.2-1.3); Blood Urea Nitrogen 22 mg/dL (7-17); Calcium 9.2 mg/dL (8.4-10.2); Carbon Dioxide 34 mmol/L (22-30); Chloride 95 mmol/L (98-107); Estimated CRCL calculation 64 ml/min; Estimated Glomerular Filt Rate > 60; Glucose 189 mg/dL (65-105); Potassium 4.1 mmol/L (3.4-5.0); Sodium 132 mmol/L (137-145)
[2019-08-05] MEDS: LEVOTHYROXINE SODIUM 50 MCG TABLET PO (06:41)
[2019-08-05] MEDS: METOPROLOL TARTRATE 25 MG TABLET 75 MG PO ×2 (08:24→21:05)
[2019-08-05] MEDS: lisinopriL 10 MG TABLET PO (08:25)
[2019-08-05] MEDS: ROSUVASTATIN 5 MG TABLET PO (08:26)
[2019-08-05 09:37] LABS: Glucose Point of Care 174 (65-105)
[2019-08-05] MEDS: FUROSEMIDE 20 MG TABLET PO (10:15)
[2019-08-05] MEDS: PANTOPRAZOLE 40 MG TABLET PO (10:15)
--- NOTE | 2019-08-05 11:23 | PC.NURSE ---
Sean import clerk used for Dr. Blankenship's conversation and my assessment. CJ#[id number]. We also used this during her therapy session. She was able to sit on the side of the bed with maximum assistance. She unable to transfer to the chair.
[2019-08-05 12:06] LABS: Glucose Point of Care 205 (65-105)
[2019-08-05] MEDS: INSULIN ASPART (*BKC) 100 UNITS/ML SUB-Q (12:09)
--- NOTE | 2019-08-05 12:16 | P.CDI_ITS ---
CDI Query Clarification Request Pt presented to ED with SOB/dyspnea, diagnosis of CHF, respiratory failure, pleural effusion. Patient placed in observation 08/01/2019 to IMU, started on 2L O2 via nasal cannula. 08/02/19 admitted to inpatient status. Patient decreased to Room Air 08/02/2019. Respiratory failure only documented by EDP. Please clarify if respiratory failure was present or ruled out. If present, please clarify acuity: Acute Chronic Acute on chronic Unknown Thank you <Erlinda Hinojosa, PORTABLE IRRIGATION OPERATOR - Last Filed: 08/05/19 12:19>
--- NOTE | 2019-08-05 12:37 | PM.IMPN ---
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 - Secondary malignant neoplasm of retroperitoneum and peritoneum; C80.1 - Malignant (primary) neoplasm, unspecified Status: Acute Assessment and Plan: 08/05/19 12:37 Patient is 69-year-old female with profound hearing loss congenitally with history ofovarian cancer with carcinomatosis status post hysterectomy with bilateral oophorectomy and tumor debulking at [facility] in March 2019 patient presented emergency department with a complaint of shortness of address as well as it exertion, further evaluate the CTA of the chest and did not show any pulmonary emboli however patient is a bilateral pleural effusion suggesting patient most likely has a as ablation of CHF etiology is uncertain, patient initial tropes were negative 2nd and 3rd tropes a slightly elevated flat and mild the patient still complains of chest pain and shortness of breath but denies any fever or chills, patient being diuresed cardiac echo showed preserved LV function with the EF of 55%, patient does have a moderate aortic stenosis, patient still complains of chest pressure and shortness of breath discuss presentation a applications specialist and agree with thoracentesis as patient has a significant large pleural effusion, and it is not improving with diureses, patient had the thoracentesis on 08/02 and 850 cc of clear liquid was removed most likely transudate, today spoke with the patient with the vertical punch operator is feeling much better compared to when she arrived, patient seen by pulmonology increase metoprolol to 75 mg b.i.d. and decreased Lasix to 20 mg q.day IV patient had a BM, today again we spoke with patient via vertical punch operator, patient was informed her ovarian cancer is not improving and there seems to be no more treatement available, patient wish to continue what can be done, we also spoke regarding hospice or comfort care patient does not want consider, currently patient lives in Assisted living was able to do her ADL however while in the hospital patient is not participating in PT. Patient clinically symptoms are improving if clinically stable weakened start patient back to assisted living or SNF (2) Elevated troponin: Code(s): R79.89 - Other specified abnormal findings of blood chemistry Status: Acute Assessment and Plan: Most likely demand ischemia secondary to shortness of breath and respiratory failure unlikely acute coronary syndrome (3) Congestive heart failure: Qualifiers: Heart failure chronicity: acute Heart failure type: diastolic Qualified Code(s): I50.31 - Acute diastolic (congestive) heart failure Code(s): I50.9 - Heart failure, unspecified Status: Acute Assessment and Plan: Recent echo showed patient has a grade 1 diastolic dysfunction most likely patient had acute on chronic diastolic dysfunction (4) Respiratory failure: Qualifiers: Chronicity: acute Code(s): J96.90 - Respiratory failure, unspecified, unspecified whether with hypoxia or hypercapnia Status: Acute Assessment and Plan: Upon arrival patient short of breath ABG showed slight hypercarbia on 2 L oxygen most likely secondary to exacerbation of acute on chronic diastolic dysfunction and pleural effusion, be consulted applications specialist and patient had a thoracentesis which did improve her symptoms Subjective Date/time seen: 08/05/19 12:37 Patient is 69-year-old female with profound hearing loss congenitally with history ofovarian cancer with carcinomatosis status post hysterectomy with bilateral oophorectomy and tumor debulking at [facility] in March 2019 patient presented emergency department with a complaint of shortness of address as well as it exertion, further evaluate the CTA of the chest and did not show any pulmonary emboli however patient is a bilateral pleural effusion suggesting patient most likely has a as ablat
[2019-08-05] MEDS: ACETAMINOPHEN 325 MG TABLET 650 MG PO (14:15)
[2019-08-05 17:34] LABS: Glucose Point of Care 159 (65-105)
--- NOTE | 2019-08-05 17:55 | PM.PNPUL ---
Progress Note: A&P Assessment and Plan (1) Congestive heart failure: Qualifiers: Heart failure chronicity: acute Heart failure type: diastolic Qualified Code(s): I50.31 - Acute diastolic (congestive) heart failure Code(s): I50.9 - Heart failure, unspecified Status: Acute Assessment and Plan: Gross description of pleural fluid consistent with transudate and CHF however pathology is (+) for adenocarcinoma - continue lasix 20 mg IV daily today - continue metoprolol to 75 mg PO bid - Left thoracentesis is risk for pneumothorax at this point and would monitor with CXR to see if decreasing (2) Malignant pleural effusion: Code(s): J91.0 - Malignant pleural effusion Status: Acute Assessment and Plan: Fluid shows adenocarcinoma from the thoracentesis on the right side, consistent with her ovarian cancer with peritneal carcinomatosis. (3) Peritoneal carcinomatosis: Code(s): C78.6 - Secondary malignant neoplasm of retroperitoneum and peritoneum; C80.1 - Malignant (primary) neoplasm, unspecified Status: Acute Assessment and Plan: from her ovarian cancer, on treatment prior to admission Subjective Date/time seen: 08/05/19 17:55 Interval history: This follow up visit was conducted using the ESL five piece expansion maker hand on the video monitor in the room, and LIN Baker was present to assist with leaning the patient forward and positioning her for the exam. This patient is a 69 yo female with ovarian cancer, has pleural effusions with improvement on the right side after a thoracentesis. She was resting when I came in. She is on room air. Her nurse, Linnea, said that she was not ready to go home as she was in an Assisted Living setting, and she is not able to go back to that level of care. Her pleural fluid from July 23 right side shows adenocarcinoma. Review of Systems Review of Systems: All systems reviewed & are unremarkable except as noted in HPI and below Exam Const: General: in distress Other: complaining of abdominal pain and nausea HENMT: Mouth: Yes moist mucous membranes Eyes: General: appearance normal, both eyes and all related structures Neck: Neck: supple and no JVD Resp: Auscultation: diminished lung sounds Other: with dullness up to mid lung glover R = L Cardio: Rate: regular rate and tachycardic Heart sounds: Murmur heart sound present GI: Auscultation: Hypoactive bowel sounds present Other: diffuse tenderness Skin: General skin exam: normal color Neuro: Speech: No normal speech (chronic dysphasia ) Extrem: General: normal to inspection, no edema and no pedal edema Objective Data Vital Signs Vital Signs: Vital Signs - 24 hr 08/04/19 20:00 08/04/19 20:34 08/04/19 21:15 Temperature 36.5 C Pulse Rate 103 H 91 91 Respiratory Rate 18 Blood Pressure 157/86 H Pulse Oximetry 94 08/04/19 22:00 08/05/19 00:00 08/05/19 04:00 Temperature 36.5 C Pulse Rate 91 70 82 Respiratory Rate 18 Blood Pressure 157/86 H Pulse Oximetry 94 08/05/19 05:39 08/05/19 08:00 08/05/19 08:24 Temperature 36.7 C Pulse Rate 93 85 93 Respiratory Rate 18 Blood Pressure 153/84 H Pulse Oximetry 94 08/05/19 12:00 08/05/19 14:10 08/05/19 16:00 Temperature 36.5 C Pulse Rate 63 77 73 Respiratory Rate 18 Blood Pressure 150/72 H Pulse Oximetry 95 Intake/Output Intake/Output: Intake & Output 08/02/19 08/03/19 08/04/19 08/05/19 23:59 23:59 23:59 23:59 Intake Total 300 750 480 340 Output Total 200 850 100 Balance 100 -100 380 340 Meds/Results Medications: Active Medications Generic Name Dose Route Start Last Admin Trade Name Freq PRN Reason Stop Dose Admin Acetaminophen 650 mg 08/01/19 18:04 08/05/19 14:15 Tylenol Tablet PO 650 mg Q4H PRN Administration Mild Pain (1-3) or F
[2019-08-05 21:20] LABS: Glucose Point of Care 189 (65-105)
[2019-08-06] VITALS (11 sets, daily range): BP systolic 142–172; BP diastolic 77–83; PULSE 63–100; RESP 16–18; TEMP 36.4–36.8; O2SAT 93–94; BMI 10.0
[2019-08-06 03:14] LABS: CA-125 1151 U/mL (<35)
[2019-08-06 05:28] LABS: Basophils Absolute Auto 0.1 K/mm3 (0.0-0.1); Basophils Percent Auto 0.6 % (0.2-1.2); Eosinophils Absolute Auto 0.1 K/mm3 (0-0.3); Eosinophils Percent Auto 0.6 % (0-4.4); Hematocrit 42.1 % (37.0-47.0); Hemoglobin 13.7 g/dL (12.0-15.0); Immature Granulocyte Absolute 0.31 K/mm3 (0.00-0.031); Immature Granulocyte Percent A 2.7 % (0-0.5); Lymphocytes Absolute Auto 0.49 K/mm3 (0.9-3.2); Lymphocytes Percent Auto 4.2 % (18.3-44.2); Mean Corpuscular HGB Conc 32.5 g/dl (32-36); Mean Corpuscular Hemoglobin 27.8 pg (26-34); Mean Corpuscular Volume 85.6 fl (80-100); Mean Platelet Volume 9.2 fl (7.4-10.4); Monocytes Absolute Auto 1.1 K/mm3 (0.1-0.6); Monocytes Percent Auto 9.1 % (2.6-8.5); Neutrophils Absolute Auto 9.6 K/mm3 (1.3-6.7); Neutrophils Percent Auto 82.8 % (45.5-73.1); Platelet Count Result 293 k/mm3 (150-375); Red Blood Count 4.92 M/mm3 (4.2-5.4); Red Cell Distribution Width 13.9 % (11.5-14.5); White Blood Count 11.6 K/mm3 (4.5-10.0)
[2019-08-06 05:44] LABS: Alanine Aminotransferase 11 U/L (4-35); Albumin Level 3.1 g/dL (3.5-5.1); Alkaline Phosphatase 112 U/L (38-126); Aspartate Amino Transferase 21 U/L (14-36); Bilirubin,Total 0.9 mg/dL (0.2-1.3); Blood Urea Nitrogen 25 mg/dL (7-17); Calcium 8.6 mg/dL (8.4-10.2); Carbon Dioxide 33 mmol/L (22-30); Chloride 95 mmol/L (98-107); Estimated CRCL calculation 87 ml/min; Estimated Glomerular Filt Rate > 60; Glucose 169 mg/dL (65-105); Potassium 3.9 mmol/L (3.4-5.0); Sodium 133 mmol/L (137-145)
[2019-08-06] MEDS: LEVOTHYROXINE SODIUM 50 MCG TABLET PO (06:02)
[2019-08-06 09:26] LABS: Glucose Point of Care 154 (65-105)
[2019-08-06] MEDS: FUROSEMIDE 20 MG TABLET PO (09:36)
[2019-08-06] MEDS: lisinopriL 10 MG TABLET PO (09:36)
[2019-08-06] MEDS: ROSUVASTATIN 5 MG TABLET PO (09:37)
[2019-08-06] MEDS: METOPROLOL TARTRATE 25 MG TABLET 75 MG PO ×2 (09:37→20:40)
[2019-08-06] MEDS: PANTOPRAZOLE 40 MG TABLET PO (09:37)
--- NOTE | 2019-08-06 09:40 | PC.NURSE ---
Patient's assessment, medications, and plan of care discussed via assistance from court stenographer on stratus video court stenographer.
[2019-08-06 11:28] LABS: Glucose Point of Care 155 (65-105)
--- NOTE | 2019-08-06 12:20 | PM.IMPN ---
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 - Secondary malignant neoplasm of retroperitoneum and peritoneum; C80.1 - Malignant (primary) neoplasm, unspecified Status: Chronic Assessment and Plan: Patient is 69-year-old female with profound hearing loss congenitally with history ofovarian cancer with carcinomatosis status post hysterectomy with bilateral oophorectomy and tumor debulking at [facility] in March 2019 patient presented emergency department with a complaint of shortness of address as well as it exertion, further evaluate the CTA of the chest and did not show any pulmonary emboli however patient is a bilateral pleural effusion suggesting patient most likely has a as ablation of CHF etiology is uncertain, patient initial tropes were negative 2nd and 3rd tropes a slightly elevated flat and mild the patient still complains of chest pain and shortness of breath but denies any fever or chills, patient being diuresed cardiac echo showed preserved LV function with the EF of 55%, patient does have a moderate aortic stenosis, patient still complains of chest pressure and shortness of breath discuss presentation a occupational health physician and agree with thoracentesis as patient has a significant large pleural effusion, and it is not improving with diureses, patient had the thoracentesis on 08/02 and 850 cc of clear liquid was removed most likely transudate. Pt is aware of her medical problems awaiting placement for further rehabilitation. Pt on oral lasix and oral analgesia (2) Elevated troponin: Code(s): R79.89 - Other specified abnormal findings of blood chemistry Status: Acute Assessment and Plan: Unlikely acute coronary syndrome (3) Congestive heart failure: Qualifiers: Heart failure chronicity: acute Heart failure type: diastolic Qualified Code(s): I50.31 - Acute diastolic (congestive) heart failure Code(s): I50.9 - Heart failure, unspecified Status: Resolved Assessment and Plan: Recent echo -acute on chronic diastolic dysfunction, continue oral diuresis (4) Respiratory failure: Qualifiers: Chronicity: acute Code(s): J96.90 - Respiratory failure, unspecified, unspecified whether with hypoxia or hypercapnia Status: Resolved Assessment and Plan: Pt has been on 2 L oxygen and diuresis- secondary to exacerbation of acute on chronic diastolic dysfunction and pleural effusion, pt is sp thoracentesis. Not Sob today, more stable today. Subjective Date/time seen: 08/06/19 12:20 Interval history: 69-year-old female with profound hearing loss congenitally with history ofovarian cancer with carcinomatosis status post hysterectomy with bilateral oophorectomy and tumor debulking at [facility] in March 2019 patient presented emergency department with a complaint of shortness of address as well as it exertion, further evaluate the CTA of the chest and did not show any pulmonary emboli however patient is a bilateral pleural effusion suggesting patient most likely has a as ablation of CHF etiology is uncertain, patient initial tropes were negative 2nd and 3rd tropes a slightly elevated flat and mild the patient still complains of chest pain and shortness of breath but denies any fever or chills, patient being diuresed cardiac echo showed preserved LV function with the EF of 55%, patient does have a moderate aortic stenosis, patient still complains of chest pressure and shortness of breath discuss presentation a occupational health physician and agree with thoracentesis as patient has a significant large pleural effusion, and it is not improving with diureses, patient had the thoracentesis on 08/02 and 850 cc of clear liquid was removed most likely transudate. See previous hospital notes. Currently pt is awaiting placement. main compliant today is constipation and weakness and lethargy. Denies any pain or SOB today. Pt is JACKSON interprete
--- NOTE | 2019-08-06 12:52 | WPDPN ---
Progress Note: A&P Assessment and Plan (1) Ovarian cancer: Onset Date: ~04/2019 Code(s): C56.9 - Malignant neoplasm of unspecified ovary Status: Acute Assessment and Plan: Patient is 69-year-old female with profound hearing loss congenitally with history ofovarian cancer with carcinomatosis status post hysterectomy with bilateral oophorectomy and tumor debulking at [facility] in March 2019. Now with malignant pleural effusion. Cytology is positive for metastatic disease is consistent with ovarian origin. She is awaiting placement. She will follow-up with Dr. Charles on discharge for discussing treatment options if she desires to treated (2) Malignant pleural effusion: Code(s): J91.0 - Malignant pleural effusion Status: Acute Assessment and Plan: Consistent with ovarian primary. Status post therapeutic thoracocentesis. (3) Congestive heart failure: Qualifiers: Heart failure chronicity: acute Heart failure type: diastolic Qualified Code(s): I50.31 - Acute diastolic (congestive) heart failure Code(s): I50.9 - Heart failure, unspecified Status: Resolved Assessment and Plan: Currently being managed by the primary team. On diuretics. Review of Systems Review of Systems: All systems reviewed & are unremarkable except as noted in HPI and below Exam Const: General: no acute distress HENMT: Mouth: Yes dry mucous membranes and Yes Abnormal oral and palatal mucosa present Eyes: General: appearance normal, both eyes and all related structures Resp: Auscultation: clear to auscultation bilaterally and diminished lung sounds Cardio: Rate: regular rate Rhythm: regular rhythm GI: Inspection: distended Auscultation: normal bowel sounds Skin: General skin exam: normal color Neuro: Speech: aphasia Gait exam (Neuro): Unable to assess gait Psych: Affect: normal affect Objective Data Vital Signs Vital Signs: Vital Signs - 24 hr 08/05/19 14:10 08/05/19 16:00 08/05/19 20:00 Temperature 36.5 C Pulse Rate 77 73 92 Respiratory Rate 18 16 Blood Pressure 150/72 H Pulse Oximetry 95 94 08/05/19 22:00 08/06/19 00:00 08/06/19 04:00 Temperature 36.4 C L Pulse Rate 92 63 75 Respiratory Rate 16 Blood Pressure 151/84 H Pulse Oximetry 94 08/06/19 06:00 08/06/19 08:00 08/06/19 09:37 Temperature 36.8 C Pulse Rate 81 89 76 Respiratory Rate 16 Blood Pressure 150/80 H Pulse Oximetry 94 Intake/Output Intake/Output: Intake & Output 08/03/19 08/04/19 08/05/19 08/06/19 23:59 23:59 23:59 23:59 Intake Total 750 480 640 640 Output Total 850 100 Balance -100 380 640 640 Meds/Results Medications: Active Medications Generic Name Dose Route Start Last Admin Trade Name Freq PRN Reason Stop Dose Admin Acetaminophen 650 mg 08/01/19 18:04 08/05/19 14:15 Tylenol Tablet PO 650 mg Q4H PRN Administration Mild Pain (1-3) or Fever Acetaminophen/Aspirin/Caffeine 1 tablet 08/02/19 05:58 08/02/19 13:54 Pain Reliever Plus Tablet PO 1 tablet Q6H PRN Administration Migraine Headache Dextrose 12.5 gm 08/04/19 10:57 Dextrose 50% Syringe IV PUSH PRN PRN Hypoglycemia Protocol Docusate Sodium 100 mg 08/06/19 21:00 Colace Capsule PO Q12HR YOHANA Furosemide 20 mg 08/05/19 09:00 08/06/19 09:36 Lasix Tablet PO 20 mg DAILY YOHANA Administration Glucagon 1 mg 08/04/19 10:57 Glucagon For Inj IM PRN PRN Hypoglycemia Protocol Glucose 15 gm 08/04/19 10:57 Glutose 15 PO PRN PRN Hypoglycemia Protocol Dextrose 1,000 mls @ 100 mls/hr 08/04/19 10:57 Dextrose 5% 1,000 Ml IVPB PRN PRN Hypoglycemia Protocol Insulin Aspart 2 - 5 units 08/04/19 12:00 08/06/19 09:34 Novolog SUB-Q Not Given TIDWM YOHANA Protocol Levothyroxine Sodium 50 mcg 08/02/19 06:30 08/06/19 06:02 Synthroid P
[2019-08-06 15:02] LABS: Albumin Pleural Fluid 2.5 g/dL
[2019-08-06 17:26] LABS: Glucose Point of Care 181 (65-105)
[2019-08-06] MEDS: DOCUSATE SODIUM 100 MG CAPSULE PO (20:40)
[2019-08-06 20:49] LABS: Glucose Point of Care 222 (65-105)
[2019-08-07] VITALS (8 sets, daily range): BP systolic 150–158; BP diastolic 68–74; PULSE 70–103; RESP 16; TEMP 36.1–36.3; O2SAT 92–93
[2019-08-07 04:53] LABS: Glucose Pleural Fluid 160 mg/dL; LDH Pleural Fluid 236 U/L; Total Protein Pleural Fluid 3.5 g/dL
[2019-08-07 05:18] LABS: Basophils Absolute Auto 0.1 K/mm3 (0.0-0.1); Basophils Percent Auto 0.5 % (0.2-1.2); Eosinophils Absolute Auto 0.1 K/mm3 (0-0.3); Eosinophils Percent Auto 0.5 % (0-4.4); Hematocrit 42.2 % (37.0-47.0); Hemoglobin 13.8 g/dL (12.0-15.0); Immature Granulocyte Absolute 0.41 K/mm3 (0.00-0.031); Immature Granulocyte Percent A 3.1 % (0-0.5); Lymphocytes Absolute Auto 0.52 K/mm3 (0.9-3.2); Lymphocytes Percent Auto 3.9 % (18.3-44.2); Mean Corpuscular HGB Conc 32.7 g/dl (32-36); Mean Corpuscular Hemoglobin 27.8 pg (26-34); Mean Corpuscular Volume 85.1 fl (80-100); Mean Platelet Volume 9.5 fl (7.4-10.4); Monocytes Absolute Auto 1.1 K/mm3 (0.1-0.6); Neutrophils Absolute Auto 11.1 K/mm3 (1.3-6.7); Platelet Count Result 323 k/mm3 (150-375); Red Blood Count 4.96 M/mm3 (4.2-5.4); White Blood Count 13.2 K/mm3 (4.5-10.0)
[2019-08-07 05:35] LABS: Alanine Aminotransferase 11 U/L (4-35); Albumin Level 3.1 g/dL (3.5-5.1); Alkaline Phosphatase 119 U/L (38-126); Aspartate Amino Transferase 23 U/L (14-36); Bilirubin,Total 1.1 mg/dL (0.2-1.3); Blood Urea Nitrogen 24 mg/dL (7-17); Calcium 8.8 mg/dL (8.4-10.2); Carbon Dioxide 30 mmol/L (22-30); Chloride 95 mmol/L (98-107); Estimated CRCL calculation 87 ml/min; Estimated Glomerular Filt Rate > 60; Glucose 174 mg/dL (65-105); Potassium 3.5 mmol/L (3.4-5.0); Sodium 132 mmol/L (137-145)
[2019-08-07] MEDS: LEVOTHYROXINE SODIUM 50 MCG TABLET PO (06:14)
[2019-08-07] MEDS: polyethylene glycoL 3350 17 GM POWD.PACK PO (08:17)
[2019-08-07] MEDS: METOPROLOL TARTRATE 25 MG TABLET 75 MG PO (08:17)
[2019-08-07] MEDS: PANTOPRAZOLE 40 MG TABLET PO (08:17)
[2019-08-07] MEDS: lisinopriL 10 MG TABLET PO (08:17)
[2019-08-07] MEDS: FUROSEMIDE 20 MG TABLET PO (08:17)
[2019-08-07] MEDS: DOCUSATE SODIUM 100 MG CAPSULE PO (08:17)
[2019-08-07] MEDS: ROSUVASTATIN 5 MG TABLET PO (08:17)
--- NOTE | 2019-08-07 09:23 | WPDONCPN ---
Progress Note: A&P Assessment and Plan (1) Ovarian cancer: Onset Date: ~04/2019 Code(s): C56.9 - Malignant neoplasm of unspecified ovary Status: Acute Assessment and Plan: 1. She has poor performance status as of today 2. Continue with OT/ PT 3. 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 Status post therapeutic thoracocentesis. (3) Congestive heart failure: Qualifiers: Heart failure chronicity: acute Heart failure type: diastolic Qualified Code(s): I50.31 - Acute diastolic (congestive) heart failure Code(s): I50.9 - Heart failure, unspecified Status: Resolved Assessment and Plan: Currently being managed by the primary team. On diuretics. Review of Systems Review of Systems All systems reviewed & are unremarkable except as noted in HPI and below Constitutional Constitutional: Reports anorexia, Reports fatigue, Denies fever(s), Reports malaise, Denies night sweats, Reports snoring, Reports weakness and Denies weight loss Eyes Eyes: Denies blurry vision ENT Denies dysphagia, Reports dry mouth, Reports hearing loss, Denies epistaxis, Denies mouth lesions, Denies mouth pain, Denies odynophagia, Denies disequilibrium and Denies sore throat Cardiovascular Cardiovascular: Denies chest pain, Denies leg edema and Denies dyspnea Respiratory Respiratory: Denies cough, Denies dyspnea and Reports snoring Gastrointestinal Gastrointestinal: Reports abdominal pain, Reports constipation, Denies dysphagia, Denies diarrhea, Denies nausea, Denies odynophagia and Denies vomiting Genitourinary Genitourinary: Denies hematuria and Denies dysuria Musculoskeletal Musculoskeletal: Denies myalgias, Denies arthralgias and Reports muscle weakness Integumentary/Breasts Skin/Breast: Denies rash and Denies unusual bruising Neurologic Denies confusion, Denies disequilibrium and Reports weakness Psychiatric Psychiatric: Denies confusion and Denies depression Endocrine Endocrine: Reports fatigue Hematologic/Lymphatic Hematologic/Lymphatic: Denies easy bleeding, Denies easy bruising and Denies lymphadenopathy Exam Const: General: comfortable, no acute distress, anxious and ill appearing; No confusion Orientation/consciousness: patient oriented x3 and No confusion HENMT: Mouth: Yes dry mucous membranes and Yes Abnormal oral and palatal mucosa present Eyes: General: appearance normal, both eyes and all related structures Neck: Neck: full ROM and supple Resp: Effort & Inspection: abnormal respiratory pattern, pursed lip breathing and tachypneic Auscultation: clear to auscultation bilaterally, breath sounds absent and diminished lung sounds Percussion: dullness Cardio: Rate: regular rate and tachycardic Rhythm: regular rhythm Heart sounds: S1 normal heart sound present and S2 normal heart sound present GI: Inspection: distended Auscultation: abnormal bowel sounds and absent bowel sounds Skin: General skin exam: normal color, no jaundice and pallor Neuro: General: patient oriented x3, CN's II-XI intact bilaterally, No confusion and Unable to assess gait Speech: normal speech Gait exam (Neuro): Unable to assess gait Extrem: General: pedal edema Psych: Appearance: disheveled Affect: normal affect and Anxious affect present Objective Data Vital Signs Vital Signs: Vital Signs - 24 hr 08/06/19 09:37 08/06/19 12:00 08/06/19 14:00 Temperature 36.4 C Pulse Rate 76 71 77 Respiratory Rate 16 Blood Pressure 172/77 H Pulse Oximetry 94 08/06/19 16:00 08/06/19 19:39 08/06/19 20:00 Temperature 36.4 C L Pulse Rate 96 97 100 Respiratory Rate 18 Blood Pressure 142/83 H Pulse Oximetry 93 08/06/19 20:40 08/07/19 00:00 08/07/19 04:00 Temperature Pulse Rate 78 70 79
[2019-08-07 11:01] LABS: Amylase, Pleural Fluid 10 U/L
--- NOTE | 2019-08-07 11:20 | PM.IMPN ---
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 - Secondary malignant neoplasm of retroperitoneum and peritoneum; C80.1 - Malignant (primary) neoplasm, unspecified Status: Chronic Assessment and Plan: Patient is 69-year-old female with profound hearing loss congenitally with history ofovarian cancer with carcinomatosis status post hysterectomy with bilateral oophorectomy and tumor debulking at [facility] in March 2019 patient presented emergency department with a complaint of shortness of address as well as it exertion, further evaluate the CTA of the chest and did not show any pulmonary emboli however patient is a bilateral pleural effusion, cardiac echo showed preserved LV function with the EF of 55%, patient does have a moderate aortic stenosis,patient had the thoracentesis on 08/02 and 850 cc of clear liquid was removed most likely transudate. likely malignant effusion, As per previous notes. Pt is aware of her medical problems awaiting placement for further rehabilitation. Pt on oral lasix and oral analgesia. awaiting placement. Seen by oncology. Continue PT/OT, watch for BMs, no result yet. (2) Elevated troponin: Code(s): R79.89 - Other specified abnormal findings of blood chemistry Status: Acute Assessment and Plan: Unlikely acute coronary syndrome (3) Congestive heart failure: Qualifiers: Heart failure chronicity: acute Heart failure type: diastolic Qualified Code(s): I50.31 - Acute diastolic (congestive) heart failure Code(s): I50.9 - Heart failure, unspecified Status: Resolved Assessment and Plan: Recent echo -acute on chronic diastolic dysfunction, continue oral diuresis (4) Respiratory failure: Qualifiers: Chronicity: acute Code(s): J96.90 - Respiratory failure, unspecified, unspecified whether with hypoxia or hypercapnia Status: Resolved Assessment and Plan: Pt is on RA- secondary to exacerbation of acute on chronic diastolic dysfunction and malignant pleural effusion, pt is sp thoracentesis. Not Sob today, stable today. Subjective Date/time seen: 08/07/19 11:20 Interval history: 69-year-old female with profound hearing loss congenitally with history ofovarian cancer with carcinomatosis status post hysterectomy with bilateral oophorectomy and tumor debulking at [facility] in March 2019 patient presented emergency department with a complaint of shortness of address as well as it exertion, further evaluate the CTA of the chest and did not show any pulmonary emboli however patient is a bilateral pleural effusion suggesting patient most likely has a as ablation of CHF etiology is uncertain, patient initial tropes were negative 2nd and 3rd tropes a slightly elevated flat and mild the patient still complains of chest pain and shortness of breath but denies any fever or chills, patient being diuresed cardiac echo showed preserved LV function with the EF of 55%, patient does have a moderate aortic stenosis, patient had the thoracentesis on 08/02 and 850 cc of clear liquid was removed most likely transudate. See previous hospital notes. Currently pt is awaiting placement. main compliant today is constipation and weakness and lethargy. Pt feels very tired. Review of Systems Review of Systems: All systems reviewed & are unremarkable except as noted in HPI and below Exam Const: General: no acute distress Other: tired appearing, lethargic Resp: Effort & Inspection: normal respiratory effort Auscultation: clear to auscultation bilaterally Other: Clear lungs decreased BS BL Cardio: Rate: regular rate Rhythm: regular rhythm GI: Auscultation: normal bowel sounds Skin: General skin exam: normal color Neuro: Speech: normal speech Sensory Exam: normal sensation Other: Patient is hard of hearing Extrem: General: normal to inspection Objective Data Vital Signs Vi
--- NOTE | 2019-08-07 11:54 | PM.PNPUL ---
Subjective Date/time seen: 08/07/19 I will sign off as her pleural fluid has been found to be due to her ovarian cancer. Please recall if needed. Thank you. Objective Data Vital Signs Vital Signs: Vital Signs - 24 hr Pulse Oximetry 94 Pulse Oximetry 93 Pulse Oximetry 92 Pulse Oximetry Intake/Output Intake/Output: Intake & Output 08/04/19 08/05/19 08/06/19 08/07/19 23:59 23:59 23:59 23:59 Intake Total 792 176 2541 270 Output Total 100 Balance 591 529 2725 270 Meds/Results Medications: Active Medications DAILY YOHANA Administration Labs Labs: Laboratory Results - last 24 hr 08/03/19 08/06/19 08/06/19 13:48 16:50 20:39 08/07/19 08/07/19
[2019-08-07 12:15] LABS: Glucose Point of Care 152 (65-105)
[2019-08-07 12:15] LABS: Glucose Point of Care 223 (65-105)
[2019-08-07] MEDS: INSULIN ASPART (*BKC) 100 UNITS/ML SUB-Q (12:23)
[2019-08-07 16:49] LABS: Glucose Point of Care 187 (65-105)
--- NOTE | 2019-09-03 08:12 | PM.DS ---
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 - Secondary malignant neoplasm of retroperitoneum and peritoneum; C80.1 - Malignant (primary) neoplasm, unspecified Status: Chronic Assessment and Plan: 69-year-old female with profound hearing loss congenitally with history ofovarian cancer with carcinomatosis status post hysterectomy with bilateral oophorectomy and tumor debulking at [facility] in March 2019 patient presented emergency department with a complaint of shortness of address as well as it exertion, further evaluate the CTA of the chest and did not show any pulmonary emboli however patient is a bilateral pleural effusion suggesting patient most likely has a as ablation of CHF etiology is uncertain, patient initial tropes were negative 2nd and 3rd tropes a slightly elevated flat and mild the patient still complains of chest pain and shortness of breath but denies any fever or chills, patient being diuresed cardiac echo showed preserved LV function with the EF of 55%, patient does have a moderate aortic stenosis, patient had the thoracentesis on 08/02 and 850 cc of clear liquid was removed most likely transudate. See previous hospital notes. Currently pt is awaiting placement. main compliant today is constipation and weakness and lethargy. Pt feels very tired. Pt is ready for discharge, placement has been found. (2) Elevated troponin: Code(s): R79.89 - Other specified abnormal findings of blood chemistry Status: Acute Assessment and Plan: Unlikely acute coronary syndrome (3) Congestive heart failure: Qualifiers: Heart failure chronicity: acute Heart failure type: diastolic Qualified Code(s): I50.31 - Acute diastolic (congestive) heart failure Code(s): I50.9 - Heart failure, unspecified Status: Resolved Assessment and Plan: Recent echo -acute on chronic diastolic dysfunction, continue oral diuresis (4) Respiratory failure: Qualifiers: Chronicity: acute Code(s): J96.90 - Respiratory failure, unspecified, unspecified whether with hypoxia or hypercapnia Status: Resolved Assessment and Plan: Pt is on RA- secondary to exacerbation of acute on chronic diastolic dysfunction and malignant pleural effusion, pt is sp thoracentesis. Not Sob today, stable today. DS: Summary Time Spent with Patient Time attestation: Total time spent providing and/or coordinating discharge services:40 minutes on day of discharge Exam Const: General: no acute distress Other: tired appearing, lethargic Resp: Effort & Inspection: normal respiratory effort Auscultation: clear to auscultation bilaterally Other: Clear lungs decreased BS BL Cardio: Rate: regular rate Rhythm: regular rhythm GI: Auscultation: normal bowel sounds Skin: General skin exam: normal color Neuro: Speech: normal speech Sensory Exam: normal sensation Other: Patient is hard of hearing Extrem: General: normal to inspection Psych: Affect: Anxious affect present DS: Data Data Completed and Pending Completed studies during hospitalization: Pending at discharge 08/03/19 12:08 Cytology [PTH] Routine Discharge Plan Discharge Attending physician on discharge: Violette Cope Consulting providers: Govind Charles ; Hannah Mcleod ; Kevin Kaur ; Darnell Sanz ; Virginia Santos ; [place] John ; Louis Chirinos ; Celestino Cyr Discharging Clinician: Violette Cope Anticipated Discharge Date/Time: 08/07/19 17:25 Patient Disposition: [place] Correction/Asst Living Activity: as tolerated Diet: heart healthy Discharge Instructions: Per Care Coordination, patient to discharge to [facility]. They request
== END 2019-08-07 19:20 | DRG 374 ==
LOC: ANHED 18:07 → ANHIMU 18:20 → ANH2MED 08-05 02:55 → ANHIMU 08-09 12:39
PROVIDERS: Internal Medicine; Internal Medicine Critical Care Medicine; Internal Medicine Medical Oncology; Admitting Provider Family Medicine; Emergency Provider Emergency Medicine; PCP Family Medicine; Visit Provider Family Medicine
DX: C78.6 Secondary malignant neoplasm of retroperitoneum and peritoneum (principal); J96.02 Acute respiratory failure with hypercapnia; I50.33 Acute on chronic diastolic (congestive) heart failure; J44.1 Chronic obstructive pulmonary disease with (acute) exacerbation; J91.0 Malignant pleural effusion; I11.0 Hypertensive heart disease with heart failure; H90.3 Sensorineural hearing loss, bilateral; I35.0 Nonrheumatic aortic (valve) stenosis; E78.5 Hyperlipidemia, unspecified; E03.9 Hypothyroidism, unspecified; N32.81 Overactive bladder; R79.89 Other specified abnormal findings of blood chemistry; Z85.43 Personal history of malignant neoplasm of ovary; Z90.710 Acquired absence of both cervix and uterus; Z90.722 Acquired absence of ovaries, bilateral
CPT/HCPCS: 32555; 36415; 36600; 70450; 71045; 71275; 74176; 80048; 80053; 82042; 82150; 82805; 82945; 83605; 83615; 83880; 83986; 84157; 84311; 84478; 84484; 85025; 85027; 85380; 85610; 85730; 86304; 87040; 88104; 88108; 88305; 89051; 93005; 93306; 96361; 96374; 96375; 97161; 97164; 97165; 99291; A9270; C9113; G0378; J1815; J1940; J2405; J2765; J7040; Q9967